=== PATIENT | male | born 1965 ===

== ENCOUNTER → 2016-06-19 | Outpatient (CLI) | payer OTHER ==
[~2016-06-19] MED LIST: DEPRESSION MED
--- NOTE | 2016-06-19 10:37 | DIAGNOSTIC IMAGING REPORT ---
CHEST 2 VIEWS ROUTINE HISTORY: Atypical chest pain with fever. COMPARISON: Chest 11/05/2016. FINDINGS: No pleural effusions. No pneumothorax. The heart is normal in size. Old, healed right-sided rib fractures. Slightly elevated interstitium without focal lung consolidations to suggest pneumonia. This remains unchanged. No evidence for pulmonary edema. IMPRESSION: No significant change compared to the prior study. No acute process. Electronically signed by: Leo Alcocer M.D. 06/19/2016 10:35 AM Dictated Date/Time: 06/19/2016 10:34 AM
--- NOTE | 2016-06-19 10:45 | DIAGNOSTIC IMAGING REPORT ---
ABDOMINAL ULTRASOUND COMPLETE HISTORY: Pain. Nausea. UPPER ABDOMINAL PAIN. COMPARISON: None. FINDINGS: Pancreas: The pancreas demonstrates a normal echotexture. Liver: Mild fatty infiltration Gallbladder: Slightly contracted. No shadowing gallstones. CBD: 3 mm Kidneys: No evidence for hydronephrosis. Small bilateral renal cysts. Spleen: Normal in size. Aorta: Normal in caliber. IVC: Patent. IMPRESSION: Small bilateral renal cysts. Slightly contracted gallbladder. Mild fatty infiltration of liver. Electronically signed by: Enrique Rodriguez M.D. 06/19/2016 10:43 AM Dictated Date/Time: 06/19/2016 10:38 AM
== END | disposition home or self-care (01) ==
LOC: C.ULTR 09:07
PROVIDERS: ATTEND Family Medicine
DX: R07.9 Chest pain, unspecified (principal)

== ENCOUNTER 2024-01-08 14:08 | Inpatient (IN) ==
--- NOTE | 2024-01-08 15:02 | Emergency Department Note ---
Impression & Plan Dog bite ED Provider Note ED Provider Note NAME: NORMA FAROOQ AGE:58 SEX: Male : 1965 ARRIVES VIA: Private vehicle INFORMANT: Patient ED PROVIDER(s): Maura Fernandez DO CHIEF COMPLAINT: Worsening wound from dog bite HPI: This is a 58-year-old male presents emergency room due to concern for worsening infection and pain at wound from a dog bite sustained by his own dog 2 nights ago. Patient states he went to [facility] yesterday and was given IM Rocephin and prescribed oral Augmentin. He had xrays taken of his hand additionally. He states he took a dose last night and this morning however the involved area to the right hand has become more edematous, more painful, wrist redness now coming back across the wrist. He denies fevers, chills, nausea, vomiting, or dizziness. He states he has had the dog for many years that is up-to-date on its vaccinations and has regular checkups with the vet. He denies any history of diabetes and is not otherwise immunocompromised. PAST MEDICAL HISTORY:See Below PAST SURGICAL HISTORY:See Below FAMILY HISTORY:See Below SOCIAL HISTORY:See Below HOME MEDICATIONS:See Below ALLERGIES:See Below VITALS:See Below PHYSICAL EXAMINATION: GENERAL: alert, well appearing, well nourished, no distress, non-toxic EYE EXAM: normal conjunctiva, PERRL and EOM's grossly intact NECK: supple, no nuchal rigidity, no adenopathy, non-tender LUNGS: Clear to auscultation. Normal chest wall mechanics, no w/r/r HEART: no murmurs, S1 normal and S2 normal SKIN: no rashes, petechiae, orbruising UPPER EXTREMITIES: upper extremities are grossly normal. FROM LUE, nml pulses b/l. Right hand with obvious edema and erythema, evidence of dog bite to the dorsal aspect between the first and second digits, patient reports sensation intact with testing at bedside and a normal cap refill however decreased range of motion of the second and third digits to the right hand secondary to pain. There is edema noted to the palmar surface in the same area. Erythema extends dorsally from the hand back across the wrist and into the distal dorsal forearm, this was outlined with a sterile marking pen, no evidence of lymphadenopathy or pain with palpation around the elbow or shoulder. LOWER EXTREMITIES: No pitting edema. FROM, nml pulses b/l. NEURO EXAM: Normal sensorium, cranial nerves II-XII grossly intact, normal speech, no facial droop,nogross weakness of arms, no gross weakness of legs. Gross sensation intact. No ataxia. Vital Signs: reviewed and remarkable Differential Diagnosis: Cellulitis, tenosynovitis, abscess, deep space infection, necrotizing fasciitis, septic arthritis, ascending lymphangitis, failed outpatient treatment, as well as others were considered MEDICAL DECISION MAKING: This is a 58-year-old male who presents emergency department following a dog bite 2 days ago with worsening symptoms despite outpatient antibiotics. Labs drawn and sent, IV established, patient given IV Unasyn. I did review outpatient x-rays from yesterday which were reassuring. Mild leukocytosis noted. Involved area was outlined with a sterile marking pen and he did not have any worsening ascending erythema while monitored in the emergency department. Due to concern for significant evolving infection to his dominant hand despite outpatient antibiotics, we discussed additional inpatient treatment and IV antibiotics. He verbalized understanding was in agreement. Case discussed with the hospitalist team for additional evaluation and management. Consultation(s): 1744: Discussed with Antwan Fong hospitalist team, for additional evaluation and management. ER Treatment Provided: See below Diagnostics Interpreted By Me: -Cardiac Monitoring: An order was placed for continuous cardiac monitoring. The monitor shows a rate of 98 with normal sinus rhythm. -Laboratory studies: As stated above and show below. Triage Nursing Note Reviewed Prior/Outside Records Reviewed -outpatient x-ray of the right hand from yesterday read by outside radiology as no fracture or other acute finding Past Med/Surg History Problem List (Updated 01/08/24 @ 18:31 by Analy Cornelius PA-C) Elevated blood pressure reading Cellulitis of hand, right Dog bite (Acute) Medical History Tobacco use Surgical History History of rotator cuff surgery Family History Father Heart disease Other Cancer Social History Smoking Status: Current every day smoker Cigarettes Per Day: 1 ppd; Hx Alcohol Use: No Hx Substance Use: No Preferred Language: Irish Feels Safe at Home: Yes Allergies Allergies Allergy/AdvReac Type Severity Reaction Status Date / Time No Known Allergies Allergy Unknown Verified 06/15/04 19:29 [id number] Allergy Unknown Uncoded 04/28/02 20:24 N Allergy Unknown Uncoded 04/28/02 20:24 Home Meds Home Medications Medication Instructions Recorded Confirmed amoxicillin 875 mg-potassium 1 tab PO BID 01/08/24 01/08/24 clavulanate 125 mg tablet ibuprofen 800 mg tablet 800 mg PO DIRECTED PRN Pain 01/08/24 01/08/24 mupirocin 2 % topical ointment 1 applic topical DIRECTED 01/08/24 01/08/24 tramadol 50 mg tablet 50 mg PO DIRECTED PRN Pain 01/08/24 01/08/24 Results & Data (ED) Vital Signs Vital Signs - 24 hr 01/08/24 14:15 01/08/24 16:33 01/08/24 19:12 Temperature 36.6 C 36.6 C Temperature Source Temporal Artery Scan Oral Pulse Rate 114 H Pulse Rate [Left Finger] 87 101 H Respiratory Rate 20 17 20 Respiratory Effort / Characteristics Non-Labored Respiratory Depth Normal Blood Pressure 119/89 Blood Pressure [Left Arm] 157/90 H 143/91 H Blood Pressure Mean 99 Blood Pressure Mean [Left Arm] 112 108 Blood Pressure Position [Left Arm] Sitting Pulse Oximetry 97 96 94 Oxygen Delivery Method Room Air Room Air Room Air Sepsis Recent Fever Within 48 Hours No Sepsis New/Unexplained Change in Mental Status N/A Sepsis Action Taken by Nursing No Action Required Laboratory Data 01/08/24 15:12 01/08/24 15:12 Lab Results 01/08/24 Range/Units 15:12 WBC 10.92 H (4.8-10.8) K/ul RBC 4.87 (4.70-6.10) M/uL Hgb 13.9 L (14.0-18.0) g/dl Hct 41.0 L (42.0-52.0) % MCV 84.2 (80.0-100.0) fL MCH 28.5 (25.0-34.0) pg MCHC 33.9 (32.0-36.0) g/dL RDW Std Deviation 40.0 (36.4-46.3) fL RDW Coeff of Ramu 13.1 (11.5-14.5) % Plt Count 247 (130-400) K/uL MPV 9.3 L (9.4-12.4) fL Immature Gran % (Auto) 0.5 % Neut % (Auto) 67.6 % Lymph % (Auto) 21.5 % [place] % (Auto) 8.6 % Eos % (Auto) 1.6 % Baso % (Auto) 0.2 % Neut # (Auto) 7.39 H (1.40-6.50) K/uL Lymph # (Auto) 2.35 (1.20-3.40) K/uL [place] # (Auto) 0.94 H (0.11-0.59) K/uL Eos # (Auto) 0.17 (0.00-0.50) K/uL Baso # (Auto) 0.02 (0.00-0.20) K/uL Immature Gran # (Auto) 0.05 (0.01-0.20) K/uL Sodium 137 (136-145) mmol/L Potassium 3.9 (3.5-5.1) mmol/L Chloride 105 (98-107) mmol/L Carbon Dioxide 24 (21-32) mmol/L Anion Gap 8 (3-11) BUN 12 (6-23) mg/dl Creatinine 0.87 (0.6-1.4) mg/dl Est Cr Clr Drug Dosing 89.4 ml/min eGFR 100.64 BUN/Creatinine Ratio 13.8 (10-20) Glucose 98 (70-99(Fasting)) mg/dl Calcium 9.5 (8.6-10.3) mg/dl Total Bilirubin 0.7 (0.2-1.0) mg/dl AST 18 (13-39) U/L ALT 15 (7-52) U/L Alkaline Phosphatase 62 (34-104) U/L Total Protein 7.3 (6.0-8.3) gm/dl Albumin 4.4 (3.4-5.0) gm/dl Globulin 2.9 (2.5-4.0) gm/dl Albumin/Globulin Ratio 1.5 (0.9-2) Administered Medications Sodium Chloride (Nss) 1,000 mls @ 125 mls/hr IV .Q8H ISMAEL Stop: 10/26/24 04:14 Last Admin: 01/08/24 20:16 Dose: 125 mls/hr Documented By: NATHALIA Discontinued Medications Diphtheria/Pertussis/Tetanus Vacc (Diphther/Tetan/Pertus Vaccine (Tdap, Adol/Adult) 0.5ml) 0.5 ml IM .ONCE ONE Stop: 01/08/24 18:05 Last Admin: 01/08/24 18:56 Dose: 0.5 ml Documented By: DEBBIE Ampicillin Sodium/Sulbactam Sodium (Unasyn) 3,000 mg in 100 mls @ 200 mls/hr IV NOW STA Stop: 01/08/24 15:25 Last Infusion: 01/08/24 17:00 Dose: Infused Documented By: Admin: 01/08/24 15:47 Dose: 200 mls/hr Documented By: CARLY Ioversol (Optiray 320 100ml) 94 ml IV ONCE ONE Stop: 01/08/24 18:33 Last Admin: 01/08/24 18:32 Dose: 94 ml Documented By: DWIGHT Imaging Data Radiologist's Impression: Hand CT 01/08/24 18:[address] WITH CONTRAST CLINICAL HISTORY: dog bite, r/o abscess COMPARISON STUDY: No previous studies for comparison. TECHNIQUE: Axial images of the right hand were obtained following intravenous injection of 94 cc Optiray 320 IV. Sagittal and coronal reconstructions were viewed. Automated exposure control was utilized for the study. A dose lowering technique was utilized adhering to the principles of ALARA. FINDINGS: Alignment of the right hand and right wrist is anatomic. On axial image 88 of 183, there is indentation of the dorsal aspect of the right second metacarpal head. This suggests an acute fracture. A bony erosion could appear similar. This also subtle lucency and cortical irregularity of the dorsal right third metacarpal head suggestive of a nondisplaced fracture. There is extensive dorsal subcutaneous edema of the right hand and forearm. This is partially imaged on this exam. No soft tissue gas is present. A small amount of fluid centered on the right second metacarpophalangeal joint is noted with peripheral enhancement. No additional fluid collections are identified. No additional fractures are identified. Carpal bones are intact. There is moderate osteoarthrosis of the right first carpometacarpal joint. Incidental note is made of a 1.5 cm lucent lesion within the base of the right first metacarpal. There is no CT evidence for tenosynovitis. IMPRESSION: 1. Indentation of the dorsal aspect of the right second metacarpal head. Given the clinical history, this is suggestive of a nondisplaced fracture. Probable additional fracture of the right third metacarpal head. 2. Small amount of fluid centered on the right second metacarpophalangeal joint with peripheral enhancement. This is likely related to the recent dog bite and may be posttraumatic. However, an infectious process with septic arthritis/developing abscess is the diagnosis of exclusion. No additional rim- enhancing fluid collections. 3. Dorsal subcutaneous edema of the right hand, wrist and forearm, partially imaged on this exam. This suggests extensive cellulitis. No soft tissue gas. ACT 112: Negative or not required by law. Electronically signed by: Jeffrey Godfrey M.D. 01/08/2024 7:16 PM Discharge Plan Visit Data Chief Complaint: Animal Bite Stated Complaint: DOG BITE, HAS GOTTEN WORSE ED Provider: Maura Fernandez Discharge Problem: Dog bite Forms Stand Alone Forms: [facility] Prescriptions Prescriptions: No Action ibuprofen 800 mg tablet 800 mg PO DIRECTED PRN (Reason: Pain) tramadol 50 mg tablet 50 mg PO DIRECTED PRN (Reason: Pain) Rx Instructions: given yesterday as 1 day supply mupirocin 2 % ointment 1 applic TOPICAL DIRECTED amoxicillin-pot clavulanate 875-125 mg tablet 1 tab PO BID Referrals Referrals: Jennifer Ferrera DO [Outside Practitioners] -
[2024-01-08 15:35] LABS: Basophils # (auto) 0.02 K/uL (0.00-0.20); Basophils % (auto) 0.2 %; Eosinophils # (auto) 0.17 K/uL (0.00-0.50); Eosinophils % (auto) 1.6 %; Hemoglobin 13.9 g/dl (14.0-18.0); Immature Granulocytes # (auto) 0.05 K/uL (0.01-0.20); Immature Granulocytes % (auto) 0.5 %; Lymphocytes # (auto) 2.35 K/uL (1.20-3.40); Lymphocytes % (auto) 21.5 %; Mean Corpuscular Hemoglobin 28.5 pg (25.0-34.0); Mean Corpuscular Hgb Conc 33.9 g/dL (32.0-36.0); Mean Corpuscular Volume 84.2 fL (80.0-100.0); Mean Platelet Volume 9.3 fL (9.4-12.4); Monocytes # (auto) 0.94 K/uL (0.11-0.59); Monocytes % (auto) 8.6 %; Neutrophils # (auto) 7.39 K/uL (1.40-6.50); Neutrophils % (auto) 67.6 %; Platelet Count 247 K/uL (130-400); RDW Coefficient of Variation 13.1 % (11.5-14.5); Red Blood Count 4.87 M/uL (4.70-6.10); White Blood Count 10.92 K/ul (4.8-10.8)
[2024-01-08] MEDS: AMPICILLIN/SULBACTAM SOD 3,000 MG/100 ML BAG IV STA (15:47)
[2024-01-08 15:49] LABS: Albumin Globulin Ratio 1.5 (0.9-2); Albumin Level 4.4 gm/dl (3.4-5.0); BUN Creatinine Ratio 13.8 (10-20); Bilirubin,Total 0.7 mg/dl (0.2-1.0); Calcium 9.5 mg/dl (8.6-10.3); Creatinine Clr Calc Pharmacy 89.4 ml/min; Globulin 2.9 gm/dl (2.5-4.0); Potassium 3.9 mmol/L (3.5-5.1); Total Protein 7.3 gm/dl (6.0-8.3)
--- NOTE | 2024-01-08 17:45 | History & Physical Report ---
Date of Service January 08, 2024 Assessment & Plan (1) Cellulitis of hand, right: (2) Dog bite: Plan: Patient is 58 year old male with PMH tobacco use presented to ER with c/o dog bite to hand 2 days ago with increased edema and erythema. Pt's pet dog and reported up to date with vaccinations. Denies fever/chills Seen by urgent care yesterday and started Augmentin however continued worsening In ER afebrile.HR: 114, down to 87, R: 20, BP 157/90, 96% on room air WBC: 10.9 In ER given Unasyn Blood culture Will continue Unasyn Obtain CT scan to r/o abscess Obtain EKG with tachycardia initially in ER, currently RRR to auscultation Elevate extremity Update tetanus shot now May need to consider ortho consult CBC, BMP in am (3) Elevated blood pressure reading: Plan: In ER BP: 157/90 Pt doesn't follow with PCP and not had recent BP measurements. May have undiagnosed HTN Monitor BP (4) Tobacco use: Plan: Smokes 1ppd Denies nicotine patch DVT Prophylaxis SCDs for now, Ambulate Admit med tele Full Code as per discussion with pt Does not follow with PCP for routine care Pt was seen and care coordinated with Dr Petersen. See addendum I spent a total of 60 minutes reviewing notes, outpatient records, labs, medication, coordinating, documenting and providing care for this patient excluding time spent in the performance of separately billed services. History of Present Illness Chief Complaint: Dog bite Primary Care Provider: NO PCP Patient is 58 year old male with PMH tobacco use presented to ER with c/o dog bite to hand with increased edema and erythema. Patient states to nights ago he went to look at his pet dog's leg and his dog bit him on his right hand. Patient states had some swelling to area yesterday and went to urgent care. He reports had reported negative x-ray hand and was given IM Rocephin and sent home on Augmentin. Patient states today has had increased swelling and redness to hand and fingers and limited range of motion of fingers. He has been attempting to keep hand elevated and has taking ibuprofen intermittently for discomfort. Reports last tetanus shot greater than 5 years ago. Patient reports dog is up -to-date on his vaccinations. He does not follow with PCP and hasn't had his BP checked until yesterday when was told it was "a little elevated". Denies fever/chills, diaphoresis, N/V/D/C, DAHL, dizziness, syncope, CP, SOB, cough, sore throat, rhinorrhea, abdominal pain, paresthesias, other extremity edema, other rashes, urinary symptoms. Allergies Allergy/AdvReac Type Severity Reaction Status Date / Time No Known Allergies Allergy Unknown Verified 06/15/04 19:29 [id number] Allergy Unknown Uncoded 04/28/02 20:24 N Allergy Unknown Uncoded 04/28/02 20:24 Home Medications Medication Instructions Recorded Confirmed Type amoxicillin 875 mg-potassium 1 tab PO BID 01/08/24 01/08/24 History clavulanate 125 mg tablet ibuprofen 800 mg tablet 800 mg PO DIRECTED PRN Pain 01/08/24 01/08/24 History mupirocin 2 % topical ointment 1 applic topical DIRECTED 01/08/24 01/08/24 History tramadol 50 mg tablet 50 mg PO DIRECTED PRN Pain 01/08/24 01/08/24 History Past Med/Surg History Problem List (Updated 01/08/24 @ 18:31 by Analy Cornelius PA-C) Elevated blood pressure reading Cellulitis of hand, right Dog bite (Acute) Medical History Tobacco use Surgical History History of rotator cuff surgery Family History Father Heart disease Other Cancer Social History Smoking Status: Current every day smoker Cigarettes Per Day: 1 ppd; Hx Alcohol Use: No Hx Substance Use: No Preferred Language: Guinean Feels Safe at Home: Yes Review of Systems Review of Systems: All systems reviewed & are unremarkable except as noted in HPI & below Physical Exam Physical Exam: General: no distress, WDWN Head: normocephalic, atraumatic Eyes: conjunctiva non-injected, anicteric ENT: normal inspection external ears, nose, mucous membranes moist Neck: supple, trachea midline, non-tender Lungs: clear, no respiratory distress, no wheezing/rhonchi/rales CV: RRR, no murmur, no pretibial edema Abd: normal BS, soft, non-tender Ext: no cyanosis, no calf tenderness; RUE: Right hand with puncture wounds over distal 2nd metacarpal region without noted discharge. +diffuse edema and erythema to hand extending to fingers and erythema extends up to wrist (marked with skin marker), Skin is warm and tender to palpation. Limited ROM of 2-5 fingers. Sensation to light touch intact Neuro: A&O x 3, no focal deficits noted, normal affect Skin: warm, dry, as above in ext Results & Data Results & Data Vital Signs (Past 12 Hours) Vital Signs Temp Pulse Pulse Resp BP BP Pulse Ox 01/08/24 16:33 87 17 157/90 H 96 01/08/24 14:15 36.6 C 114 H 20 119/89 97 O2 Del Method 01/08/24 16:33 Room Air 01/08/24 14:15 Room Air Laboratory Results Short CBC 01/08/24 Range/Units 15:12 WBC 10.92 H (4.8-10.8) K/ul Hgb 13.9 L (14.0-18.0) g/dl Hct 41.0 L (42.0-52.0) % Plt Count 247 (130-400) K/uL BMP 01/08/24 15:12 Sodium 137 Potassium 3.9 Chloride 105 Carbon Dioxide 24 BUN 12 Creatinine 0.87 Glucose 98 Calcium 9.5 Liver Function 01/08/24 Range/Units 15:12 Total Bilirubin 0.7 (0.2-1.0) mg/dl AST 18 (13-39) U/L ALT 15 (7-52) U/L Alkaline Phosphatase 62 (34-104) U/L Albumin 4.4 (3.4-5.0) gm/dl Supervising Physician Co-Signing Physician Notes attending addendum: The patient was seen and examined in emergency room He has been complaining of increasing swelling and redness involving the right hand following a dog bite on Thursday He has been complaining of increasing pain and tightness involving the fingers Denies any fever and/or chills and does not have any other significant symptoms On examination Apparent distress secondary to pain in the right hand Hemodynamically stable and is afebrile Chestclear to auscultate HeartS1-S2 regular Abdomenbenign Right upper extremityright hand and adjoining forearm is swelled with the bite desi involving the base of the thumb, redness spreading lower half of the right forearm. Movement of the fingers limited due to swelling His admission labs and imaging studies noted Right hand cellulitis following dog bite on Thursday Unasyn has been started Advised to elevate the hands above the heart when possible Awaiting CT scan report to rule out any abscess and if so we need to have Ortho consult Agree with assessment and plan as outlined above by Sandy Chang and take the full responsibility of the care Dr Beth Petersen
[2024-01-08] MEDS: OPTIRAY 320 100ml IV ONE (18:32)
[2024-01-08] MEDS: DIPHTHER/TETAN/PERTUS Vaccine (Tdap, Adol/Adult) 0.5mL IM ONE (18:56)
--- NOTE | 2024-01-08 19:17 | CT Scan Report ---
RIGHT HAND CT WITH CONTRAST CLINICAL HISTORY: dog bite, r/o abscess COMPARISON STUDY: No previous studies for comparison. TECHNIQUE: Axial images of the right hand were obtained following intravenous injection of 94 cc Opti ray 320 IV. Sagittal and coronal reconstructions were viewed. Automated exposure control was utilized for the study. A dose lowering technique was utilized adhering to the principles of ALARA. FINDINGS: Alignment of the right hand and right wrist is anatomic. On axial image 88 of 183, there i s indentation of the dorsal aspect of the right second metacarpal head. This suggests an acute fractu re. A bony erosion could appear similar. This also subtle lucency and cortical irregularity of the do rsal right third metacarpal head suggestive of a nondisplaced fracture. There is extensive dorsal sub cutaneous edema of the right hand and forearm. This is partially imaged on this exam. No soft tissue gas is present. A small amount of fluid centered on the right second metacarpophalangeal joint is not ed with peripheral enhancement. No additional fluid collections are identified. No additional fractur es are identified. Carpal bones are intact. There is moderate osteoarthrosis of the right first carpo metacarpal joint. Incidental note is made of a 1.5 cm lucent lesion within the base of the right firs t metacarpal. There is no CT evidence for tenosynovitis. IMPRESSION: 1. Indentation of the dorsal aspect of the right second metacarpal head. Given the clinical history, this is suggestive of a nondisplaced fracture. Probable additional fracture of the right third metaca rpal head. 2. Small amount of fluid centered on the right second metacarpophalangeal joint with peripheral enhan cement. This is likely related to the recent dog bite and may be posttraumatic. However, an infectiou s process with septic arthritis/developing abscess is the diagnosis of exclusion. No additional rim-e nhancing fluid collections. 3. Dorsal subcutaneous edema of the right hand, wrist and forearm, partially imaged on this exam. Thi s suggests extensive cellulitis. No soft tissue gas. ACT 112: Negative or not required by law. Electronically signed by: Jeffrey Godfrey M.D. 01/08/2024 7:16 PM
[2024-01-08] MEDS: SODIUM CHLORIDE 0.9% 1,000 ML IV SCH (20:16)
[2024-01-08] MEDS ORDERED: ONDANSETRON INJ 2 MG/ML 2 ML VIAL IV PRN (21:26)
[2024-01-08] MEDS ORDERED: POLYETHYLENE (MIRALAX) 17 GM PACK PO PRN (21:26)
[2024-01-08] MEDS: AMPICILLIN/SULBACTAM SOD 3,000 MG/100 ML BAG IV SCH (22:58)
[2024-01-08] MEDS: ACETAMINOPHEN 325 MG TAB PO PRN (22:59)
--- NOTE | 2024-01-09 07:38 | Electrocardiogram Report ---
Test Reason : Blood Pressure : */* mmHG Vent. Rate : 101 BPM Atrial Rate : 101 BPM P-R Int : 128 ms QRS Dur : 82 ms QT Int : 344 ms P-R-T Axes : 37 63 60 degrees QTcB Int : 446 ms Sinus tachycardia Otherwise normal ECG When compared with ECG of 05-Nov-2006 13:15, ST now depressed in Anterior leads Confirmed by Nigel Hollis ([id number]) on 01/09/2024 7:38:30 AM Referred By: REFERRED SELF Confirmed By: Nigel Hollis
[2024-01-09 07:43] LABS: Basophils # (auto) 0.03 K/uL (0.00-0.20); Basophils % (auto) 0.3 %; Eosinophils # (auto) 0.21 K/uL (0.00-0.50); Eosinophils % (auto) 2.3 %; Hematocrit (blood only) 39.1 % (42.0-52.0); Hemoglobin 12.8 g/dl (14.0-18.0); Immature Granulocytes # (auto) 0.04 K/uL (0.01-0.20); Immature Granulocytes % (auto) 0.4 %; Lymphocytes # (auto) 2.25 K/uL (1.20-3.40); Lymphocytes % (auto) 24.6 %; Mean Corpuscular Hemoglobin 28.6 pg (25.0-34.0); Mean Corpuscular Hgb Conc 32.7 g/dL (32.0-36.0); Mean Corpuscular Volume 87.5 fL (80.0-100.0); Mean Platelet Volume 9.1 fL (9.4-12.4); Monocytes # (auto) 0.88 K/uL (0.11-0.59); Monocytes % (auto) 9.6 %; Neutrophils # (auto) 5.74 K/uL (1.40-6.50); Neutrophils % (auto) 62.8 %; Platelet Count 217 K/uL (130-400); RDW Coefficient of Variation 13.2 % (11.5-14.5); RDW Standard Deviation 41.9 fL (36.4-46.3); Red Blood Count 4.47 M/uL (4.70-6.10); White Blood Count 9.15 K/ul (4.8-10.8)
[2024-01-09 07:53] LABS: BUN Creatinine Ratio 13.3 (10-20); Calcium 8.8 mg/dl (8.6-10.3); Potassium 4.1 mmol/L (3.5-5.1)
--- NOTE | 2024-01-09 09:33 | Hospitalist Progress Note ---
Date of Service January 09, 2024 Assessment & Plan (1) Cellulitis of hand, right: (2) Dog bite: Plan: 58 year old male with PMH tobacco use presented to ER with c/o dog bite to hand 2 days ago with increased edema and erythema. Pt's pet dog and reported up to d ate with vaccinations. Denies fever/chills Seen by urgent care on the day prior to presentation and started Augmentin however continued worsening In ER afebrile.HR: 114, down to 87, R: 20, BP 157/90, 96% on room air WBC: 10.9 CT Hand noted indentation of dorsal aspect of right 2nd Metacarpal head, suggestive of nondisplaced fracture. Probable additional fracture of fright 3rd metacarpal head. Small amount of fluid in right 2nd MCP joint with peripheral enhancement. Dorsal subcut edema of right hand, wrist and forearm Got Tetanus shot in ER Reports his dog is fully vaccinated Continue IV unasyn Elevate Rt hand Awaiting Ortho surg evaluation and recommendations (3) Elevated blood pressure reading: Plan: In ER BP: 157/90 Pt doesn't follow with PCP and not had recent BP measurements. Possible elevated BP due to acute illness vs undiagnosed Hypertension BP is 134/77 this AM Continue to monitor (4) Tobacco use: Plan: Smokes 1ppd Counseled regarding smoking cessation DVT Prophylaxis SCDs for now, Ambulate Full Code I spent a total of 55 minutes coordinating, documenting and providing care for this patient excluding time spent in performance of separately billed services Admission and Anticipated Discharge Date Admission Date: January 08, 2024 Subjective Patient seen and examined Reports he had a dog bite on thursday. He went to urgent care and got antibiotics (IM and po) Had increased swelling and redness of hand extending into distal forearm, necessitating presentation to ER. Reports pain in 2nd and 3rd digits of right hand with swelling with limited movement. Denied fever, chills, nausea, vomiting, abd pain, diarrhea Got tetanus shot in ER yesterday Reports his dog is fully vaccinated Physical Exam Constitutional: + well hydrated; no acute distress Eyes: PERRL, conjunctivae normal, anicteric sclerae ENMT: external ear and nose normal, oropharynx normal Respiratory: normal respiratory effort, lungs clear to auscultation Cardiovascular: Rate/Rhythm: regular rate and regular rhythm Gastrointestinal (Abdomen): normal bowel sounds, soft, nontender, no hepatosplenomegaly Musculoskeletal: Bite desi on dorsum of proximal phalanx and metacarpal area of 2nd digit of right hand. Hand swelling, erythema and tenderness Limited ROM of 2nd and 3rd digit MCP and ICP joints. Improved erythema of distal forearm within marked region Neurologic: PERRL, EOMI, accommodation nl, no face palsy, no dysarthria Psychiatric: A+Ox3, euthymic affect Results & Data Results & Data Vital Signs (Past 12 Hours) Vital Signs Temp Pulse Pulse Resp BP Pulse Ox O2 Del Method 01/09/24 07:37 36.7 C 80 18 134/77 95 Room Air 01/09/24 07:11 78 01/09/24 02:47 36.7 C 91 H 18 152/86 H 94 Room Air 01/09/24 01:42 Room Air 01/08/24 22:56 36.8 C 86 18 144/85 H 95 Room Air 01/08/24 21:58 94 H Laboratory Results Abnormal lab results 01/08/24 01/09/24 Range/Units 15:12 06:56 WBC 10.92 H (4.8-10.8) K/ul RBC 4.47 L (4.70-6.10) M/uL Hgb 13.9 L 12.8 L (14.0-18.0) g/dl Hct 41.0 L 39.1 L (42.0-52.0) % MPV 9.3 L 9.1 L (9.4-12.4) fL Neut # (Auto) 7.39 H (1.40-6.50) K/uL [place] # (Auto) 0.94 H 0.88 H (0.11-0.59) K/uL Chloride 109 H (98-107) mmol/L
--- NOTE | 2024-01-09 10:21 | Orthopedic Consultation ---
Date of Consultation January 09, 2024 Assessment & Plan (1) Dog bite: Examination is concerning for infection warranting washout in the OR. Consent obtained. Patient had breakfast this morning. Placed order for n.p.o. status. Plan will be to take him to the OR this afternoon. CT results of the hand reviewed as above. X-ray of the right hand pending as this was not available in our system. Continue antibiotics per primary service. Continue pain control per primary service. (2) Cellulitis of hand, right: See above History of Present Illness Reason for Consultation: Right hand dog bite with suspected infection Attending Physician: Cheyenne Feliciano MD History of Present Illness This is a [id number] 58-year-old male with a history of tobacco use who presented to the emergency department last night for increasing pain, redness, and swelling in his right hand. He states that he was bitten by his dog the night of 01/06/2024. He was then seen at an urgent care the following day and received antibiotics. Yesterday he noticed that the pain, redness, and swelling was increasing and he came to the emergency department and was subsequently admitted for IV antibiotics. Since being onto the antibiotics, the redness and swelling in his forearm has improved but he still has significant pain, redness, and swelling over his index finger knuckle and he is unable to fully bend the index finger or fully straighten it secondary to pain. He has not had any fevers or chills. He denies any numbness or tingling in his fingers. He has not had any prior surgeries on this hand. He does not currently take any daily medications. Allergies Allergy/AdvReac Type Severity Reaction Status Date / Time No Known Allergies Allergy Unknown Verified 06/15/04 19:29 [id number] Allergy Unknown Uncoded 04/28/02 20:24 N Allergy Unknown Uncoded 04/28/02 20:24 Home Medications Medication Instructions Recorded Confirmed Type amoxicillin 875 mg-potassium 1 tab PO BID 01/08/24 01/08/24 History clavulanate 125 mg tablet ibuprofen 800 mg tablet 800 mg PO DIRECTED PRN Pain 01/08/24 01/08/24 History mupirocin 2 % topical ointment 1 applic topical DIRECTED 01/08/24 01/08/24 History tramadol 50 mg tablet 50 mg PO DIRECTED PRN Pain 01/08/24 01/08/24 History Patient History Medical History Tobacco use Surgical History History of rotator cuff surgery Family History Father Heart disease Other Cancer Social History Smoking Status: Current every day smoker Tobacco Type: Cigarettes Cigarettes Per Day: 1 ppd; Second Hand Exposure: Yes; Do You Dip or Chew Tobacco: No; Tobacco Cessation Education Requested by Patient: No Hx Alcohol Use: No Hx Substance Use: No Preferred Language: Telugu Communication Ability: Effective Child & Adolescent Psychiatrist Required: No Beliefs That Will Affect Care: None Current Living Situation: Alone Other Information That Helps Us Care for You: No Feels Safe at Home: Yes Safety Concerns: Feels Safe At This Time Assistive Devices: None Assistive Devices Comment: Independent Physical Exam Constitutional: Resting comfortably sitting upright in bed. Self splinting the right hand. Otherwise in no distress, pleasant. Cardiovascular: Right radial pulse 2+ Musculoskeletal: Right upper extremity: There is diffuse soft tissue swelling noted about the hand most prominent about the dorsal and palmar aspects of the second MCP joint. Multiple puncture wounds to the palmar and dorsal aspects of the same location. There is skin erythema noted to the dorsal aspect overlying the second MCP joint. Focal tenderness appreciated over the second MCP joint and palmar aspect of the proximal phalanx of the index finger. There is decreased flexion and extension in the index finger when having the patient make a fist. Index finger range of motion: Able to initiate active flexion at the DIP and PIP joints. Unable to fully extend secondary to pain. Significant pain is elicited with passive range of motion of the second MCP joint and with passive extension of the index finger. There is no pain elicited with passive range of motion of the 3rd through 5th MCP joints. Neurologic: No sensory deficits to light touch in right fingers Results & Data Vital Signs (Past 12 Hours) Vital Signs Temp Pulse Pulse Resp BP Pulse Ox O2 Del Method 01/09/24 07:37 98.1 F 80 18 134/77 95 Room Air 01/09/24 07:11 78 01/09/24 02:47 98.1 F 91 H 18 152/86 H 94 Room Air 01/09/24 01:42 Room Air 01/08/24 22:56 98.3 F 86 18 144/85 H 95 Room Air Laboratory Results 01/08/24 19:30 Aerobic Blood Culture - Pending Blood Anaerobic Blood Culture - Pending 01/09/24 01/08/24 06:56 15:12 WBC 9.15 10.92 H RBC 4.47 L 4.87 Hgb 12.8 L 13.9 L Hct 39.1 L 41.0 L MCV 87.5 84.2 MCH 28.6 28.5 MCHC 32.7 33.9 RDW Std Deviation 41.9 40.0 RDW Coeff of Ramu 13.2 13.1 Plt Count 217 247 MPV 9.1 L 9.3 L Immature Gran % (Auto) 0.4 0.5 Neut % (Auto) 62.8 67.6 Lymph % (Auto) 24.6 21.5 [place] % (Auto) 9.6 8.6 Eos % (Auto) 2.3 1.6 Baso % (Auto) 0.3 0.2 Neut # (Auto) 5.74 7.39 H Lymph # (Auto) 2.25 2.35 [place] # (Auto) 0.88 H 0.94 H Eos # (Auto) 0.21 0.17 Baso # (Auto) 0.03 0.02 Immature Gran # (Auto) 0.04 0.05 Sodium 139 137 Potassium 4.1 3.9 Chloride 109 H 105 Carbon Dioxide 25 24 Anion Gap 5 8 BUN 13 12 Creatinine 0.98 0.87 Est Cr Clr Drug Dosing 79.0 89.4 eGFR 89.94 100.64 BUN/Creatinine Ratio 13.3 13.8 Glucose 97 98 Calcium 8.8 9.5 Total Bilirubin 0.7 AST 18 ALT 15 Alkaline Phosphatase 62 Total Protein 7.3 Albumin 4.4 Globulin 2.9 Albumin/Globulin Ratio 1.[address] 01/08/24 18:[address] WITH CONTRAST CLINICAL HISTORY: dog bite, r/o abscess COMPARISON STUDY: No previous studies for comparison. TECHNIQUE: Axial images of the right hand were obtained following intravenous injection of 94 cc Optiray 320 IV. Sagittal and coronal reconstructions were viewed. Automated exposure control was utilized for the study. A dose lowering technique was utilized adhering to the principles of ALARA. FINDINGS: Alignment of the right hand and right wrist is anatomic. On axial image 88 of 183, there is indentation of the dorsal aspect of the right second metacarpal head. This suggests an acute fracture. A bony erosion could appear similar. This also subtle lucency and cortical irregularity of the dorsal right third metacarpal head suggestive of a nondisplaced fracture. There is extensive dorsal subcutaneous edema of the right hand and forearm. This is partially imaged on this exam. No soft tissue gas is present. A small amount of fluid centered on the right second metacarpophalangeal joint is noted with peripheral enhancement. No additional fluid collections are identified. No additional fractures are identified. Carpal bones are intact. There is moderate osteoarthrosis of the right first carpometacarpal joint. Incidental note is made of a 1.5 cm lucent lesion within the base of the right first metacarpal. There is no CT evidence for tenosynovitis. IMPRESSION: 1. Indentation of the dorsal aspect of the right second metacarpal head. Given the clinical history, this is suggestive of a nondisplaced fracture. Probable additional fracture of the right third metacarpal head. 2. Small amount of fluid centered on the right second metacarpophalangeal joint with peripheral enhancement. This is likely related to the recent dog bite and may be posttraumatic. However, an infectious process with septic arthritis/developing abscess is the diagnosis of exclusion. No additional rim- enhancing fluid collections. 3. Dorsal subcutaneous edema of the right hand, wrist and forearm, partially imaged on this exam. This suggests extensive cellulitis. No soft tissue gas. ACT 112: Negative or not required by law. Electronically signed by: Jeffrey Godfrey M.D. 01/08/2024 7:16 PM
--- NOTE | 2024-01-09 10:54 | XRay Report ---
RIGHT HAND 3 VIEWS CLINICAL HISTORY: Dogbite injury. Infection. FINDINGS: 3 views of the right hand are correlated with CT scan of the hand dated 01/08/2024. The ske letal structures are well mineralized. There is no radiographic evidence of acute fracture. Mild arth ritic change is seen in the wrist and hand, greatest at the first carpometacarpal and metacarpophalan geal joints. There is dorsal soft tissue edema. No soft tissue gas is identified. A tiny radiodense f oreign body is seen within the palmar aspect of the fourth digit at the level of the middle phalangea l head. IMPRESSION: 1. Dorsal soft tissue swelling with no acute bony abnormality identified. 2. The tiny impaction fractures suggested by CT are not visualized on x-ray. 3. A tiny radiodense foreign body is seen in the fourth digit as above. Electronically signed by: Gregorio Tomas M.D. 01/09/2024 10:52 AM
--- NOTE | 2024-01-09 11:55 | Anesthesiology Consultation ---
Date of Service January 09, 2024 Assessment & Plan Chart Review Chart Review: Acceptable Risk for Surgery and Patient NOT seen in Pre Admission Testing Consults Requested none History Surgery Operation Date: 01/09/24 13:00 Proposed Procedures p Incision and Drainage Right Hand(Right) - Kevin Solorio MD Height/Weight Height: 5 ft 4 in Weight: 79 kg Allergies Allergy/AdvReac Type Severity Reaction Status Date / Time No Known Allergies Allergy Unknown Verified 06/15/04 19:29 [id number] Allergy Unknown Uncoded 04/28/02 20:24 N Allergy Unknown Uncoded 04/28/02 20:24 Medications Home Medications Medication Instructions Recorded Confirmed Last Taken amoxicillin 875 mg-potassium 1 tab PO BID 01/08/24 01/08/24 Unknown clavulanate 125 mg tablet ibuprofen 800 mg tablet 800 mg PO DIRECTED PRN Pain 01/08/24 01/08/24 Unknown mupirocin 2 % topical ointment 1 applic topical DIRECTED 01/08/24 01/08/24 Unknown tramadol 50 mg tablet 50 mg PO DIRECTED PRN Pain 01/08/24 01/08/24 Unknown Active Medications Generic Name Dose Route Start Last Admin Trade Name Freq PRN Reason Stop Dose Admin Acetaminophen 650 mg 01/08/24 21:26 01/08/24 22:59 Acetaminophen 325 Mg Tab PO 02/07/24 21:25 650 mg Q4H PRN Administration pain/fever Ampicillin Sodium/Sulbactam Sodium 3,000 mg in 100 mls @ 200 mls/hr 01/08/24 22:00 01/09/24 09:49 Unasyn IV 01/15/24 21:59 Infused Q6H ISMAEL Infusion Past Medical History Medical History Tobacco use Past Family History Family History Father Heart disease Other Cancer Past Surgical History Surgical History History of rotator cuff surgery Social History Smoking Status: Current every day smoker Smoking cigarettes per day: 1 ppd Do You Dip or Chew Tobacco: No Hx Alcohol Use: No Hx Substance Use: No Physical Exam Vital Signs Last Vital Signs Temp 36.5 C 01/09/24 11:26 Pulse 82 01/09/24 11:26 Resp 18 01/09/24 11:26 BP 142/76 H 01/09/24 11:26 Pulse Ox 96 01/09/24 11:26 O2 Del Method Room Air 01/09/24 11:26 Constitutional + well hydrated; no acute distress Eyes PERRL, conjunctivae normal, anicteric sclerae ENMT external ear and nose normal, oropharynx normal Respiratory normal respiratory effort, lungs clear to auscultation Cardiovascular Rate/Rhythm: regular rate and regular rhythm Gastrointestinal (Abdomen) normal bowel sounds, soft, nontender, no hepatosplenomegaly Neurologic PERRL, EOMI, accommodation nl, no face palsy, no dysarthria Psychiatric A+Ox3, euthymic affect Testing Laboratory Results 01/09/24 06:56 01/09/24 06:56
[2024-01-09] MEDS ORDERED: fentaNYL citrate PF 100 MCG/2 ML VIAL ONE (12:34)
[2024-01-09] MEDS ORDERED: MIDAZOLAM HCL 1 MG/ML 2ML VIAL ONE (12:34)
[2024-01-09] MEDS ORDERED: ROCURONIUM BROMIDE 10 MG/ML 5 ML VIAL IV ONE (12:43)
[2024-01-09] MEDS ORDERED: SUCCINYLCHOLINE CHLORIDE 20 MG/ML 10 ML VIAL IV ONE (12:43)
[2024-01-09] MEDS ORDERED: ONDANSETRON INJ 2 MG/ML 2 ML VIAL ONE (12:43)
[2024-01-09] MEDS ORDERED: PROPOFOL IV EMULSION 10 MG/ML 20 ML VIAL IV ONE ×2 (12:43→13:34)
[2024-01-09] MEDS ORDERED: LIDOCAINE 2% 2 ML VIAL/AMP(20MG/ML) INFIL ONE (12:43)
[2024-01-09] MEDS ORDERED: ACETAMINOPHEN 1000 MG/100 ML IV IV ONE (12:48)
[2024-01-09] MEDS ORDERED: ceFAZolin 330 MG/ML 1 GM VIAL ONE ×2 (13:24)
[2024-01-09] MEDS: ceFAZolin 2000MG 2,000 MG/15 ML SYR IV ONE (13:25)
[2024-01-09] MEDS ORDERED: LARYING-O-JET KIT (LTA) ONE (13:39)
[2024-01-09] MEDS ORDERED: PHENYLEPHRINE HCL 10 MG/ML VIAL ONE (13:39)
[2024-01-09] MEDS ORDERED: SUGAMMADEX SODIUM 200 MG/2 ML VIAL IV ONE (14:09)
[2024-01-09] MEDS ORDERED: ALBUTEROL HFA 8 GM INHALER INH ONE (14:13)
[2024-01-09] MEDS: LIDOCAINE 1%/EPINEPHRINE 1:100,000 50 ML VIAL INFIL ONE ×2 (14:22→19:05)
--- NOTE | 2024-01-09 14:40 | Operative Report ---
Post Operative Report Pre & Post Diagnosis Operation Date: 01/09/24 13:00 Pre-Op Diagnosis: 1. Dog bite right hand, 2. Cellulitis of right hand Post-Op Diagnosis: 1. Dog bite right hand, 2. Cellulitis of right hand Subcutaneous abscess. Probable early osteomyelitis of the second metacarpal head and possible septic arthritis of the index finger metacarpophalangeal joint I identified the patient and participated in the time-out.: Yes Procedure Operation Date: 01/09/24 13:00 Actual Procedures p Incision and Drainage Right Hand Index finger with opening and irrigation of the metacarpophalangeal joint and debridement of the second metacarpal head(Right) - Kevin Solorio MD Surgeon Kevin Solorio MD Clerical Administrative Assistant Luan Forde physicians cashier assistant no resident or fellow available Estimated Blood Loss 10 Findings Consistent with Post-Op Diagnosis Specimens Specimen 1 was right index finger superficial #2 right index finger metacarpophalangeal joint #3 was right second metacarpal head. The first specimen was bone from the second metacarpal head for culture and permanent specimen. There was also a second specimen for permanent which was soft tissue from the index finger, tenosynovium at [employer]. Drains Quarter-inch Bar x 1 Anesthesia Type General Regional Complications none Disposition Accompanied Patient To Recovery: No Disposition: Recovery Room Indications Patient is 58. Approximately 3 days ago he was bit by his dog. Progressive redness pain and swelling involving the index finger metacarpophalangeal joint. X-rays are negative. CT scan suggests a small abscess and there has been some damage to the second carpal head which could be related to puncture from a tooth. I recommended irrigation debridement exploration. Patient agreed to proceed. Description of Procedure Informed consent. Patient identified. He identified the procedure site as the right index finger. I marked with my initials. A preop surgical timeout performed. A preop dose of IV antibiotics given. Taken to the OR positioned supine on the operating room table. A tourniquet is applied to the right upper arm. The procedure initially began without use of the tourniquet but due to hyperemia and oozing I inflated the tourniquet without exsanguinating the limb. It was up for about 15 minutes and then deflated. Hand table. DVT prophylaxis with mechanical devices. Postop early mobility. Examination showed a solitary benign-appearing puncture on the volar aspect of the metacarpal phalangeal joint without any redness fluctuance or drainage. On the dorsal aspect of the hand there were multiple punctures and abrasions over the metacarpal phalangeal joint. Slight fluctuance was noted and with some more pressure purulence could be expressed from the larger wound on the more ulnar side of the joint. The hand was shaved and then scrubbed and then prepped and draped in the usual sterile fashion. I made a longitudinal incision directly over the midline extending as necessary for total length of about 5 cm. The skin was sharply incised. I bluntly dissected down through the subcutaneous tissue to the level of the extensor expansion. Upon incising the skin a small amount of purulence was noted which was adjacent to the previous mentioned wound. A culture was taint obtained here and labeled right index finger superficial. I then got control of some of the superficial bleeding and a vein proximally. I then put the tourniquet up. There was significant granulation tissue present here which was debrided. This was obscuring the extensor tendons. The extensor indicis proprius and the common extensor tendon were identified. I then made an incision through the extensor smith along the ulnar aspect of the metacarpal carrying this out to the proximal phalanx. The tenosynovium was incised and the joint was opened. There was some fluid within the joint however I did not see any significant purulence like I did more superficially. I did note however that there was an obvious puncture of the second metacarpal head located somewhat ulnar of midline. I did not see any other damage noted. This puncture caused flaking of the cartilage which was debrided. The tissue within this puncture was soft. I obtained a culture within the joint labeling at the metacarpophalangeal joint and then the third culture came from the metacarpal head. Along the way I debrided the tenosynovium and sent that as a specimen and then also I sent a second specimen which was curetted bone from the second metatarsal head and soft tissue for culture and permanent. After debriding this lesion was about 4 or 5 mm in diameter and equally deep. I removed any soft unhealthy tissue back to what appeared to be normal bone using a curette. I then used a bulb syringe to irrigate a liter of saline into the MCP joint metacarpal head and throughout the wound. Tourniquet then let down and m eticulous hemostasis was achieved. I took 1/4 inch [place] drain and tucked it on the dorsal aspect of the metacarpal phalangeal joint underneath the extensor tendon which was allowed to fall back into place. I did not place the drain between the bones. The surrounding tissue was inflamed but otherwise healthy. I looked into the second webspace did not see any purulence. I then went ahead and closed the skin around the drain with near far far near stitches. 4-0 nylon. Then 2 simple stitches proximally and distally. The hand was cleaned with wet and dry sponges and then a bulky soft sterile dressing was applied. Hand dressing with fluffs between the fingers 4 x 4's Xeroform soft wrap and a volar splint from the mid forearm to the fingertips with the wrist slightly extended and the fingers in slight flexion. Fernando wrap. Patient waken from anesthesia without difficulty. Taken to recovery in stable condition. There were no complications. Specimens were as mentioned above. Counts were correct and blood loss is estimated to be 10 cc. At the conclusion the operation there was no contact. Plan is to admit to the hospital continue IV antibiotics. I think we will probably need to get an infectious disease consultation as I am concerned regarding early osteomyelitis of the second metacarpal head due to the puncture from the tooth. I attest to the content of the Intraoperative Record and any orders documented therein. Any exceptions are noted below.
[2024-01-09] MEDS ORDERED: LIDOCAINE 1%/EPINEPHRINE 1:100,000 20 ML VIAL INFIL ONE (14:45)
[2024-01-09] MEDS ORDERED: ePHEDrine sulfate 50 MG/ML AMP IV PRN (14:53)
[2024-01-09] MEDS ORDERED: ATROPINE SULFATE 0.1 MG/ML 10ML SYR IV PRN (14:53)
[2024-01-09] MEDS ORDERED: ONDANSETRON INJ 2 MG/ML 2 ML VIAL IV PRN (14:53)
[2024-01-09] MEDS: fentaNYL citrate PF 100 MCG/2 ML VIAL IV PRN (14:56)
--- NOTE | 2024-01-09 15:04 | Operative Report ---
Post Operative Report Pre & Post Diagnosis Operation Date: 01/09/24 13:00 Pre-Op Diagnosis: 1. Dog bite right hand, 2. Cellulitis of right hand Post-Op Diagnosis: 1. Dog bite right hand, 2. Cellulitis of right hand I identified the patient and participated in the time-out.: Yes Procedure Operation Date: 01/09/24 13:00 Actual Procedures p Incision and Drainage Right Hand(Right) - Kevin Solorio MD Surgeon Kevin Solorio MD Terminal System Operator Luan Richardson PA-C no resident or fellow available Estimated Blood Loss 10 Findings Consistent with Post-Op Diagnosis Specimens Wound culture and tissue specimen Drains Bar Description of Procedure Please refer to Dr. Solorio's procedure note for full details. I was present during the entire case. I assisted with prepping, draping, retraction, wound closure, dressing application, and splinting. I attest to the content of the Intraoperative Record and any orders documented therein. Any exceptions are noted below.
[2024-01-09] MEDS: fentaNYL citrate PF 100 MCG/2 ML VIAL ONE (15:13)
[2024-01-09] MEDS ORDERED: NALOXONE HCL 0.4 MG/1 ML VIAL/CARP IV PRN (15:46)
--- NOTE | 2024-01-09 15:53 | Anesthesiology Progress Note ---
Date of Service January 09, 2024 Anesthesia Post Procedure Vital Signs Vital Signs: Temp Pulse Pulse Pulse Resp BP BP 01/09/24 15:25 36.9 C 83 22 131/83 01/09/24 15:15 82 15 123/79 01/09/24 15:05 80 13 130/81 01/09/24 14:55 85 20 114/74 01/09/24 14:46 36.6 C 95 H 16 141/83 H 01/09/24 11:26 36.5 C 82 18 142/76 H 01/09/24 07:37 36.7 C 80 18 134/77 01/09/24 07:11 78 01/09/24 02:47 36.7 C 91 H 18 152/86 H 01/09/24 01:42 01/08/24 22:56 36.8 C 86 18 144/85 H 01/08/24 21:58 94 H 01/08/24 21:33 36.7 C 64 18 134/77 01/08/24 21:30 108 H 01/08/24 21:26 36.7 C 64 18 134/77 01/08/24 21:26 01/08/24 20:55 36.9 C 103 H 18 143/91 H 01/08/24 20:00 103 H 18 143/81 H 01/08/24 19:12 36.6 C 101 H 20 143/91 H 01/08/24 16:33 87 17 157/90 H Pulse Ox Pulse Ox O2 Del Method O2 Del Method O2 Flow Rate 01/09/24 15:25 94 Nasal Cannula 2 01/09/24 15:15 94 Oxymask 3 01/09/24 15:05 95 Oxymask 7 01/09/24 14:55 97 Oxymask 7 01/09/24 14:46 96 Oxymask 7 01/09/24 11:26 96 Room Air 01/09/24 07:37 95 Room Air 01/09/24 07:11 01/09/24 02:47 94 Room Air 01/09/24 01:42 Room Air 01/08/24 22:56 95 Room Air 01/08/24 21:58 01/08/24 21:33 100 Room Air 01/08/24 21:30 01/08/24 21:26 100 Room Air 01/08/24 21:26 100 Room Air 01/08/24 20:55 96 Room Air 01/08/24 20:00 96 Room Air 01/08/24 19:12 94 Room Air 01/08/24 16:33 96 Room Air Pain Intensity Right Hand: Pain Intensity: 5 Transfer of Care Handoff Completed per policy Notes Mental Status: alert / awake / arousable Patient Amnestic to Procedure: Yes Nausea / Vomiting: adequately controlled Pain: adequately controlled Airway Patency, RR, SpO2: stable & adequate BP & HR: stable & adequate Hydration State: stable & adequate Anesthetic Complications: no major complications apparent and Pt Satisfied with anesthetic care
[2024-01-09] MEDS: KETOROLAC TROMETHAMINE 15 MG/ML VIAL IV PRN (17:26)
[2024-01-10] MEDS: oxyCODONE HCL IR 5 MG TAB (IMMEDIATE RELEASE) PO PRN (01:07)
[2024-01-10 08:42] LABS: Hematocrit (blood only) 36.5 % (42.0-52.0); Hemoglobin 11.8 g/dl (14.0-18.0); Mean Corpuscular Hemoglobin 28.4 pg (25.0-34.0); Mean Corpuscular Hgb Conc 32.3 g/dL (32.0-36.0); Mean Corpuscular Volume 87.7 fL (80.0-100.0); Mean Platelet Volume 9.4 fL (9.4-12.4); Platelet Count 220 K/uL (130-400); RDW Standard Deviation 41.5 fL (36.4-46.3); Red Blood Count 4.16 M/uL (4.70-6.10); White Blood Count 7.77 K/ul (4.8-10.8)
[2024-01-10 08:59] LABS: BUN Creatinine Ratio 16.3 (10-20); Calcium 8.5 mg/dl (8.6-10.3); Creatinine Clr Calc Pharmacy 86.1 ml/min; Potassium 4.1 mmol/L (3.5-5.1)
--- NOTE | 2024-01-10 09:58 | Orthopedic Progress Note ---
Date of Service January 10, 2024 Assessment & Plan (1) Dog bite: Plan: POD 1 -s/p incision and drainage and debridement of his right index finger with Dr. Solorio Encouraged elevation of his right hand above his heart as frequently as possible. He may do gentle range of motion of his fingers as the splint and dressings allow. He may be out of bed as tolerated. Continue IV Unasyn as per primary service. Postoperative dressings left in place. Will plan to change dressings tomorrow. Does have a Bar drain which will also potentially be pulled tomorrow. Infectious disease consult placed. Will discuss with them due to bony and possible joint involvement whether he would need continued IV antibiotics with potential PICC line. Continue regular diet. Will continue to follow and reevaluate his right hand tomorrow. All questions were answered. Postoperative course was discussed. Dr. Solorio present for today's visit. Case management for disposition needs. (2) Cellulitis of hand, right: Plan: See above Admission and Anticipated Discharge Date Admission Date: January 09, 2024 Subjective Patient is resting in bed. No complaints of significant pain in the right hand. He is at elevated on a couple of pillows. Denies any numbness or tingling in his fingers. Overall states that he does feel that he has less pain today. He is otherwise not feeling like he has had a fever or chills. Denies any nausea or vomiting. Denies any lightheadedness or dizziness. Has tolerated IV antibiotics. Tolerating regular diet. Physical Exam Musculoskeletal: Exam of his right hand: Postoperative dressings are clean, dry and intact. Splint is in place. Capillary refill is brisk of all of his fingers. He is able to gently move his fingers but movement of the index finger does reproduce a little discomfort. He is able to separate his fingers and hold against resistance. Full range of motion of the shoulder and elbow was noted. Results & Data Vital Signs (Past 12 Hours) Vital Signs Temp Pulse Pulse Pulse Resp BP Pulse Ox 01/10/24 08:24 01/10/24 07:53 36.4 C L 81 18 138/73 01/10/24 07:07 83 01/10/24 03:06 36.9 C 79 18 139/79 92 01/09/24 22:48 37.2 C 83 18 127/71 94 Pulse Ox O2 Del Method O2 Del Method 01/10/24 08:24 94 Room Air 01/10/24 07:53 Room Air 01/10/24 07:07 01/10/24 03:06 Room Air 01/09/24 22:48 Room Air Laboratory Results 01/08/24 19:30 Aerobic Blood Culture - Preliminary Blood No growth in Aerobic bottle after 24 hours. Anaerobic Blood Culture - Preliminary No growth in Anaerobic bottle after 24 hours. 01/09/24 13:37 Gram Stain - Final Bone Aerobic and Anaerobic Culture - Pending 01/09/24 13:37 Gram Stain - Final Finger,Right Aerobic and Anaerobic Culture - Pending 01/09/24 13:37 Gram Stain - Final Finger,Right Index Aerobic and Anaerobic Culture - Pending 01/09/24 13:37 Gram Stain - Final Finger,Right Index Aerobic and Anaerobic Culture - Pending 01/10/24 07:31 WBC 7.77 RBC 4.16 L Hgb 11.8 L Hct 36.5 L MCV 87.7 MCH 28.4 MCHC 32.3 RDW Std Deviation 41.5 RDW Coeff of Ramu 13.0 Plt Count 220 MPV 9.4 Sodium 139 Potassium 4.1 Chloride 108 H Carbon Dioxide 26 Anion Gap 5 BUN 15 Creatinine 0.92 Est Cr Clr Drug Dosing 86.1 eGFR 97.02 BUN/Creatinine Ratio 16.3 Glucose 100 H Calcium 8.5 L
--- NOTE | 2024-01-10 10:49 | Hospitalist Progress Note ---
Date of Service January 10, 2024 Assessment & Plan (1) Cellulitis of hand, right: (2) Dog bite: Plan: 58 year old male with PMH tobacco use presented to ER with c/o dog bite to hand 2 days ago with increased edema and erythema. Pt's pet dog and reported up to d ate with vaccinations. Denies fever/chills Seen by urgent care on the day prior to presentation and started Augmentin however continued worsening In ER afebrile.HR: 114, down to 87, R: 20, BP 157/90, 96% on room air WBC: 10.9 CT Hand noted indentation of dorsal aspect of right 2nd Metacarpal head, suggestive of nondisplaced fracture. Probable additional fracture of fright 3rd metacarpal head. Small amount of fluid in right 2nd MCP joint with peripheral enhancement. Dorsal subcut edema of right hand, wrist and forearm Got Tetanus shot in ER Reported his dog is fully vaccinated Continue IV unasyn Ortho evaluated and performed Incision and Drainage of right hand on 01/09/24 POD 1 Pain is well controlled Awaiting ID recs consulted by Ortho (3) Elevated blood pressure reading: Plan: In ER BP: 157/90 Pt doesn't follow with PCP and not had recent BP measurements. Possible elevated BP due to acute illness vs undiagnosed Hypertension BP has been stable (4) Tobacco use: Plan: Smokes 1ppd Had been counseled regarding smoking cessation DVT Prophylaxis SCDs for now, Ambulate Full Code I spent a total of 45 minutes coordinating, documenting and providing care for this patient excluding time spent in performance of separately billed services Admission and Anticipated Discharge Date Admission Date: January 09, 2024 Subjective Patient seen and examined Had I&D by Ortho yesterday Reports minimal pain in Right hand surgical site Denied all other complaints Physical Exam Constitutional: + well hydrated; no acute distress Eyes: PERRL, conjunctivae normal, anicteric sclerae ENMT: external ear and nose normal, oropharynx normal Respiratory: normal respiratory effort, lungs clear to auscultation Cardiovascular: Rate/Rhythm: regular rate and regular rhythm Gastrointestinal (Abdomen): normal bowel sounds, soft, nontender, no hepatosplenomegaly Musculoskeletal: Right hand bandaged Neurologic: PERRL, EOMI, accommodation nl, no face palsy, no dysarthria Psychiatric: A+Ox3, euthymic affect Results & Data Results & Data Vital Signs (Past 12 Hours) Vital Signs Temp Pulse Pulse Pulse Resp BP Pulse Ox 01/10/24 08:24 01/10/24 07:53 36.4 C L 81 18 138/73 01/10/24 07:07 83 01/10/24 03:06 36.9 C 79 18 139/79 92 Pulse Ox O2 Del Method O2 Del Method 01/10/24 08:24 94 Room Air 01/10/24 07:53 Room Air 01/10/24 07:07 01/10/24 03:06 Room Air Laboratory Results Abnormal lab results 01/10/24 Range/Units 07:31 RBC 4.16 L (4.70-6.10) M/uL Hgb 11.8 L (14.0-18.0) g/dl Hct 36.5 L (42.0-52.0) % Chloride 108 H (98-107) mmol/L Glucose 100 H (70-99(Fasting)) mg/dl Calcium 8.5 L (8.6-10.3) mg/dl
[2024-01-11 06:28] LABS: Hematocrit (blood only) 38.1 % (42.0-52.0); Hemoglobin 12.2 g/dl (14.0-18.0); Mean Corpuscular Volume 87.6 fL (80.0-100.0); Mean Platelet Volume 9.3 fL (9.4-12.4); Platelet Count 231 K/uL (130-400); RDW Coefficient of Variation 12.6 % (11.5-14.5); RDW Standard Deviation 40.7 fL (36.4-46.3); Red Blood Count 4.35 M/uL (4.70-6.10); White Blood Count 7.09 K/ul (4.8-10.8)
[2024-01-11 06:36] LABS: BUN Creatinine Ratio 13.3 (10-20); Calcium 8.7 mg/dl (8.6-10.3); Creatinine Clr Calc Pharmacy 80.8 ml/min
--- NOTE | 2024-01-11 10:32 | Orthopedic Progress Note ---
Date of Service January 11, 2024 Assessment & Plan (1) Dog bite: Plan: POD 2-s/p incision and drainage and debridement of his right index finger with Dr. Solorio Encouraged elevation of his right hand above his heart as frequently as possible. He may do gentle range of motion of his fingers as the dressings allow. Splint removed and kept off today. He may be out of bed as tolerated. Continue Antibiotics as per primary service. Dressings were changed today. Awaiting Infectious disease consult. Will discuss with them due to bony and possible joint involvement whether he would need continued IV antibiotics with potential PICC line. Continue regular diet. No plans for repeat surgical intervention at this time. Will continue to follow. All questions were answered. Patient understands and agrees with the plan. Postoperative course was discussed. Case management for disposition needs. Dr. Solorio present for today's visit. (2) Cellulitis of hand, right: Plan: See above Admission and Anticipated Discharge Date Admission Date: January 09, 2024 Subjective Patient is resting in bed. No complaints of pain in his right hand. Each day notices improvement. States that he can move it more today. Denies any fevers or chills. Has been keeping it elevated above his heart as frequently as possible. Physical Exam Musculoskeletal: Exam of his right upper extremity: The postoperative dressings and splint removed today. He has a Bar drain in place in the center aspect of incision which is removed today. There are some mild maceration of the skin edges of the incision. No purulent drainage expressed with light pressure along the second MCP joint. Tolerates active and passive range of motion of all of his finger joints, With mild discomfort. Minimal edema. Sensation is intact. Capillary fill is brisk. Nontender throughout the rest of his hand or fingers. Sutures are retained. A new dressing was applied with Adaptic, 4 x 4's and Kerlix. Results & Data Vital Signs (Past 12 Hours) Vital Signs Temp Pulse Pulse Resp BP Pulse Ox O2 Del Method 01/11/24 07:43 36.7 C 74 18 145/81 H 93 Room Air 01/11/24 07:40 82 01/11/24 03:13 36.0 C L 74 16 144/68 H 96 Room Air 01/10/24 22:41 36.5 C 82 18 135/76 94 Room Air Laboratory Results 01/08/24 19:30 Aerobic Blood Culture - Preliminary Blood No growth in Aerobic bottle after 48 hours. Anaerobic Blood Culture - Preliminary No growth in Anaerobic bottle after 48 hours. 01/09/24 13:37 Gram Stain - Final Bone Aerobic and Anaerobic Culture - Preliminary No growth to date. 01/09/24 13:37 Gram Stain - Final Finger,Right Aerobic and Anaerobic Culture - Preliminary No growth to date. 01/09/24 13:37 Gram Stain - Final Finger,Right Index Aerobic and Anaerobic Culture - Preliminary No growth to date. 01/09/24 13:37 Gram Stain - Final Finger,Right Index Aerobic and Anaerobic Culture - Preliminary No growth to date. 01/11/24 05:43 WBC 7.09 RBC 4.35 L Hgb 12.2 L Hct 38.1 L MCV 87.6 MCH 28.0 MCHC 32.0 RDW Std Deviation 40.7 RDW Coeff of Ramu 12.6 Plt Count 231 MPV 9.3 L Sodium 140 Potassium 4.0 Chloride 107 Carbon Dioxide 27 Anion Gap 6 BUN 13 Creatinine 0.98 Est Cr Clr Drug Dosing 80.8 eGFR 89.94 BUN/Creatinine Ratio 13.3 Glucose 105 H Calcium 8.7
[2024-01-11] MEDS: DOCUSATE SODIUM/SENNA 50/8.6MG TAB PO SCH (11:04)
--- NOTE | 2024-01-11 12:29 | Infectious Disease Consult ---
Date of Consultation January 11, 2024 Assessment & Plan (1) Cellulitis of hand, right: (2) Dog bite: Plan This is a 58-year-old male with a past medical history of tobacco use who presented to the ED after adog bite 2 days prior. Dog is his pet dog and is up-to-date with vaccinations. Dog bit him after he accidently hit his sore lef. Dog latched on to his R hand and he was unable to remove him for about 1 minute He denies fever, chills, sweats, nausea, vomiting. He developed R hand and swelling was seen in urgent care. He was started on Augmentin however he continued to have increasing pain, erythema, swelling, so he was presented to the ER for further evaluaion . In the ED afebrile, heart rate 114, RR 20, blood pressure 157/90, O2 sats 96% on room air. Labs: WBC 10.92, BUN 12, creatinine 0.87. CT hand noted indentation of dorsal aspect of the right second metacarpal head, suggestive of nondisplaced fracture. Probable additional fracture of right third metacarpal head. Small amount of fluid in the right second MCP joint with peripheral enhancement. Dorsal subcutaneous edema of right hand, wrist, forearm. Hand x-ray showed dorsal soft tissue swelling with no acute bony abnormality. A tiny radiodense foreign body is seen in the fourth digit. He received tetanus vaccine in ED and was started on Unasyn. He underwent incision and drainage of the right index finger with irrigation of the metacarpophalangeal joint and debridement of the second metacarpal head phalangeal joint and debridement of the second metacarpal head. Per op report there was a solitary puncture on the volar aspect of the metacarpal phalangeal joint without redness fluctuance or drainage. On the dorsal aspect of the hand there were multiple punctures and abrasions over the metacarpal phalangeal joint. Slight fluctuance was noted and with some pressure,purulence was e xpressed from the larger wound on the more ulnar side of the joint. Upon incision a small amount of purulence was noted from the right index finger wound. There was an obvious puncture of the second metacarpal head, cultures were obtained of the metacarpal phalangeal joint and metacarpal head. Tenosynovium was debrided. bone cultures obtained from the second metacarpal head obtained and growing Pasteurella canis/oralis. ID consulted for dog bite s/p I and D. Patient has less hand pain. 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 Surgical path and OR cx pending. Recommendations Continue Unasyn 3 g Iv q 6h for now pending OR cx and sensi FU OR cx and PATH Anticipate 6 wks IV abx as bone involvement. Thank you for this consult. ID will continue to follow Srikanth Ross MD, MPH Infectious Disease [facility] Call [phone] with questions Consultation Information Consultation was provided via telemedicine using two-way real-time interactive telecommunication between the patient and the telemedicine provider. For the duration of the visit, the provider was performing the assessment from a different facility than the patient. This includesuse of bluetooth stethoscope forauscultationperformed by the telepresenter that the telemedicine provider can hear if described in the physical exam. Cashier Associate contact information: Please call [facility] Center . (Phone Number For Physician Use Only) After establishing a telemedicine visit, patient was: Patient was verified with two unique identifiers Time Spent with Patient: Initial => 75 min History of Present Illness Reason for Consultation: Dog bite , sp I and D Requesting Physician: TARSHA Wagner Attending Physician: Cheyenne Feliciano MD History of Present Illness This is a 58-year-old male with a past medical history of tobacco use who presented to the ED after adog bite 2 days prior. Dog is his pet dog and is up-to-date with vaccinations. Dog bit him after he accidently hit his sore lef. Dog latched on to his R hand and he was unable to remove him for about 1 minute He denies fever, chills, sweats, nausea, vomiting. He developed R hand and swelling was seen in urgent care. He was started on Augmentin however he continued to have increasing pain, erythema, swelling, so he was presented to the ER for further evaluaion . In the ED afebrile, heart rate 114, RR 20, blood pressure 157/90, O2 sats 96% on room air. Labs: WBC 10.92, BUN 12, creatinine 0.87. CT hand noted indentation of dorsal aspect of the right second metacarpal head, suggestive of nondisplaced fracture. Probable additional fracture of right third metacarpal head. Small amount of fluid in the right second MCP joint with peripheral enhancement. Dorsal subcutaneous edema of right hand, wrist, forearm. Hand x-ray showed dorsal soft tissue swelling with no acute bony abnormality. A tiny radiodense foreign body is seen in the fourth digit. He received tetanus vaccine in ED and was started on Unasyn. He underwent incision and drainage of the right index finger with irrigation of the metacarpophalangeal joint and debridement of the second metacarpal head phalangeal joint and debridement of the second metacarpal head. Per op report there was a solitary puncture on the volar aspect of the metacarpal phalangeal joint without redness fluctuance or drainage. On the dorsal aspect of the hand there were multiple punctures and abrasions over the metacarpal phalangeal joint. Slight fluctuance was noted and with some pressure,purulence was expressed from the larger wound on the more ulnar side of the joint. Upon incision a small amount of purulence was noted from the right index finger wound. There was an obvious puncture of the second metacarpal head, cultures were obtained of the metacarpal phalangeal joint and metacarpal head. Tenosynovium was debrided. bone cultures obtained from the second metacarpal head obtained and growing Pasteurella canis/oralis. ID consulted for dog bite s/p I and D. Patient has less hand pain. Allergies Allergy/AdvReac Type Severity Reaction Status Date / Time No Known Allergies Allergy Unknown Verified 06/15/04 19:29 [id number] Allergy Unknown Uncoded 04/28/02 20:24 N Allergy Unknown Uncoded 04/28/02 20:24 Home Medications Medication Instructions Recorded Confirmed Type amoxicillin 875 mg-potassium 1 tab PO BID 01/08/24 01/08/24 History clavulanate 125 mg tablet ibuprofen 800 mg tablet 800 mg PO DIRECTED PRN Pain 01/08/24 01/08/24 History mupirocin 2 % topical ointment 1 applic topical DIRECTED 01/08/24 01/08/24 History tramadol 50 mg tablet 50 mg PO DIRECTED PRN Pain 01/08/24 01/08/24 History Patient History Medical History Tobacco use Surgical History History of rotator cuff surgery Family History Father Heart disease Other Cancer Social History Smoking Status: Current every day smoker Tobacco Type: Cigarettes Cigarettes Per Day: 1 ppd; Second Hand Exposure: Yes; Do You Dip or Chew Tobacco: No; Tobacco Cessation Education Requested by Patient: No Hx Alcohol Use: No Hx Substance Use: No Preferred Language: Pashto Communication Ability: Effective Material Control Supervisor Required: No Beliefs That Will Affect Care: None Current Living Situation: Alone Other Information That Helps Us Care for You: No Feels Safe at Home: Yes Safety Concerns: Feels Safe At This Time Assistive Devices: None Assistive Devices Comment: Independent Review of System A 10 point ROS. Pertinent positives as per HPI Physical Exam Physical Exam: Gen- NAD, comfortable Neck- supple Lungs- No increased work of breathing Extremities- Right hand dressed. Moves fingers. Edema R> L. Edema improved per pt. No LE edema Abdomen- soft, not tender, not distended Neuro- AAO times 3 Psych- cooperative, normal mood Results & Data Vital Signs (Past 12 Hours) Vital Signs Temp Pulse Pulse Resp BP Pulse Ox O2 Del Method 01/11/24 11:44 36.6 C 84 16 152/83 H 93 Room Air 01/11/24 07:43 36.7 C 74 18 145/81 H 93 Room Air 01/11/24 07:40 82 01/11/24 03:13 36.0 C L 74 16 144/68 H 96 Room Air Laboratory Results Laboratory Results - last 48 hr 01/10/24 01/11/24 07:31 05:43 WBC 7.77 7.09 RBC 4.16 L 4.35 L Hgb 11.8 L 12.2 L Hct 36.5 L 38.1 L MCV 87.7 87.6 MCH 28.4 28.0 MCHC 32.3 32.0 RDW Std Deviation 41.5 40.7 RDW Coeff of Ramu 13.0 12.6 Plt Count 220 231 MPV 9.4 9.3 L Sodium 139 140 Potassium 4.1 4.0 Chloride 108 H 107 Carbon Dioxide 26 27 Anion Gap 5 6 BUN 15 13 Creatinine 0.92 0.98 Est Cr Clr Drug Dosing 86.1 80.8 eGFR 97.02 89.94 BUN/Creatinine Ratio 16.3 13.3 Glucose 100 H 105 H Calcium 8.5 L 8.[address] 01/08/24 18:[address] WITH CONTRAST CLINICAL HISTORY: dog bite, r/o abscess COMPARISON STUDY: No previous studies for comparison. TECHNIQUE: Axial images of the right hand were obtained following intravenous injection of 94 cc Optiray 320 IV. Sagittal and coronal reconstructions were viewed. Automated exposure control was utilized for the study. A dose lowering technique was utilized adhering to the principles of ALARA. FINDINGS: Alignment of the right hand and right wrist is anatomic. On axial image 88 of 183, there is indentation of the dorsal aspect of the right second metacarpal head. This suggests an acute fracture. A bony erosion could appear similar. This also subtle lucency and cortical irregularity of the dorsal right third metacarpal head suggestive of a nondisplaced fracture. There is extensive dorsal subcutaneous edema of the right hand and forearm. This is partially imaged on this exam. No soft tissue gas is present. A small amount of fluid centered on the right second metacarpophalangeal joint is noted with peripheral enhancement. No additional fluid collections are identified. No additional fractures are identified. Carpal bones are intact. There is moderate osteoarthrosis of the right first carpometacarpal joint. Incidental note is made of a 1.5 cm lucent lesion within the base of the right first metacarpal. There is no CT evidence for tenosynovitis. IMPRESSION: 1. Indentation of the dorsal aspect of the right second metacarpal head. Given the clinical history, this is suggestive of a nondisplaced fracture. Probable additional fracture of the right third metacarpal head. 2. Small amount of fluid centered on the right second metacarpophalangeal joint with peripheral enhancement. This is likely related to the recent dog bite and may be posttraumatic. However, an infectious process with septic arthritis/developing abscess is the diagnosis of exclusion. No additional rim- enhancing fluid collections. 3. Dorsal subcutaneous edema of the right hand, wrist and forearm, partially imaged on this exam. This suggests extensive cellulitis. No soft tissue gas. ACT 112: Negative or not required by law. Electronically signed by: Jeffrey Godfrey M.D. 01/08/2024 7:16 PM Hand X-Ray 01/09/24 10:09 RIGHT HAND 3 VIEWS CLINICAL HISTORY: Dogbite injury. Infection. FINDINGS: 3 views of the right hand are correlated with CT scan of the hand dated 01/08/2024. The skeletal structures are well mineralized. There is no radiographic evidence of acute fracture. Mild arthritic change is seen in the wrist and hand, greatest at the first carpometacarpal and metacarpophalangeal joints. There is dorsal soft tissue edema. No soft tissue gas is identified. A tiny radiodense foreign body is seen within the palmar aspect of the fourth digit at the level of the middle phalangeal head. IMPRESSION: 1. Dorsal soft tissue swelling with no acute bony abnormality identified. 2. The tiny impaction fractures suggested by CT are not visualized on x-ray. 3. A tiny radiodense foreign body is seen in the fourth digit as above. Electronically signed by: Gregorio Tomas M.D. 01/09/2024 10:52 AM Medications Administered Microbiology 01/08/24 19:30 Blood Aerobic Blood Culture - Preliminary No growth in Aerobic bottle after 48 hours. 01/08/24 19:30 Blood Anaerobic Blood Culture - Preliminary No growth in Anaerobic bottle after 48 hours. 01/09/24 13:37 Bone Gram Stain - Final 01/09/24 13:37 Bone Aerobic and Anaerobic Culture - Preliminary No growth to date. 01/09/24 13:37 Finger,Right Gram Stain - Final 01/09/24 13:37 Finger,Right Aerobic and Anaerobic Culture - Preliminary No growth to date. 01/09/24 13:37 Finger,Right Index Gram Stain - Final 01/09/24 13:37 Finger,Right Index Aerobic and Anaerobic Culture - Preliminary No growth to date. 01/09/24 13:37 Finger,Right Index Gram Stain - Final 01/09/24 13:37 Finger,Right Index Aerobic and Anaerobic Culture - Preliminary No growth to date.
--- NOTE | 2024-01-11 15:23 | Hospitalist Progress Note ---
Date of Service January 11, 2024 Assessment & Plan (1) Cellulitis of hand, right: (2) Dog bite: Plan: 58 year old male with PMH tobacco use presented to ER with c/o dog bite to hand 2 days ago with increased edema and erythema. Pt's pet dog and reported up to d ate with vaccinations. Denies fever/chills Seen by urgent care on the day prior to presentation and started Augmentin however continued worsening In ER afebrile.HR: 114, down to 87, R: 20, BP 157/90, 96% on room air WBC: 10.9 CT Hand noted indentation of dorsal aspect of right 2nd Metacarpal head, suggestive of nondisplaced fracture. Probable additional fracture of fright 3rd metacarpal head. Small amount of fluid in right 2nd MCP joint with peripheral enhancement. Dorsal subcut edema of right hand, wrist and forearm Got Tetanus shot in ER Reported his dog is fully vaccinated Continue IV unasyn Ortho evaluated and performed Incision and Drainage of right hand on 01/09/24 POD 2 Pain is well controlled ID prelim notes today noted to continue IV unasyn and will discuss with Surgery; if c/f OM and joint involvement, anticipate 6 weeks of IV abx and PICC Bone culture prelim - Pasteurella canis/oralis (3) Elevated blood pressure reading: Plan: In ER BP: 157/90 Pt doesn't follow with PCP and not had recent BP measurements. Possible elevated BP due to acute illness vs undiagnosed Hypertension (4) Tobacco use: Plan: Smokes 1ppd Had been counseled regarding smoking cessation DVT Prophylaxis SCDs for now, Ambulate Full Code I spent a total of 50 minutes coordinating, documenting and providing care for this patient excluding time spent in performance of separately billed services Admission and Anticipated Discharge Date Admission Date: January 09, 2024 Subjective Patient seen and examined Right hand pain is well controlled Reports some constipation Denied other complaints on ROS Physical Exam Constitutional: + well hydrated; no acute distress Eyes: PERRL, conjunctivae normal, anicteric sclerae ENMT: external ear and nose normal, oropharynx normal Respiratory: normal respiratory effort, lungs clear to auscultation Cardiovascular: Rate/Rhythm: regular rate and regular rhythm Gastrointestinal (Abdomen): normal bowel sounds, soft, nontender, no hepatosplenomegaly Musculoskeletal: Right hand bandaged Neurologic: PERRL, EOMI, accommodation nl, no face palsy, no dysarthria Psychiatric: A+Ox3, euthymic affect Results & Data Results & Data Vital Signs (Past 12 Hours) Vital Signs Temp Pulse Pulse Resp BP Pulse Ox O2 Del Method 01/11/24 15:06 86 01/11/24 11:44 36.6 C 84 16 152/83 H 93 Room Air 01/11/24 07:43 36.7 C 74 18 145/81 H 93 Room Air 01/11/24 07:40 82 Laboratory Results Abnormal lab results 01/11/24 Range/Units 05:43 RBC 4.35 L (4.70-6.10) M/uL Hgb 12.2 L (14.0-18.0) g/dl Hct 38.1 L (42.0-52.0) % MPV 9.3 L (9.4-12.4) fL Glucose 105 H (70-99(Fasting)) mg/dl
[2024-01-11] MEDS: amLODIPine BESYLATE 5 MG TAB PO SCH (16:30)
[2024-01-11] MEDS: INFLUENZA VACC TS2024-25(6m+)/PF (IIV3) 0.5mL Syr IM ONE (20:25)
[2024-01-11] MEDS: MELATONIN 3 MG TAB PO PRN (22:27)
[2024-01-11] MEDS: KETOROLAC TROMETHAMINE 15 MG/ML VIAL IV ONE (22:27)
[2024-01-12 06:25] LABS: Hematocrit (blood only) 36.4 % (42.0-52.0); Hemoglobin 12.2 g/dl (14.0-18.0); Mean Corpuscular Hemoglobin 28.2 pg (25.0-34.0); Mean Corpuscular Hgb Conc 33.5 g/dL (32.0-36.0); Mean Corpuscular Volume 84.1 fL (80.0-100.0); Mean Platelet Volume 9.1 fL (9.4-12.4); Platelet Count 238 K/uL (130-400); RDW Coefficient of Variation 12.4 % (11.5-14.5); RDW Standard Deviation 37.8 fL (36.4-46.3); Red Blood Count 4.33 M/uL (4.70-6.10)
[2024-01-12 06:47] LABS: BUN Creatinine Ratio 17.5 (10-20); Calcium 8.9 mg/dl (8.6-10.3); Creatinine Clr Calc Pharmacy 76.6 ml/min
--- NOTE | 2024-01-12 11:56 | Orthopedic Progress Note ---
Date of Service January 12, 2024 Assessment & Plan (1) Dog bite: Plan: Have you done anybody GEN feels much better. Improved movement. He is afebrile. His white blood cell count is normal. The bone culture has grown out Pasteurella canis. No sensitivities to follow. This comes from the bone. Therefore there was likely osteomyelitis and the plan is for 6 weeks of IV antibiotics. He is supposed to get IV access. If he leaves today then we can follow-up with him Finesse in the office for a wound check. He is to elevate ice. Leave the dressing on keep clean and dry. He may do some simple movement of the fingers. His dressing was changed today. Swelling improved. Redness diminished. There is no fluctuance or drainage. The wound was healing well. He had about a 5 degree extensor lag and he can flex about 50%. All improved compared to previous. A new dressing was applied. (2) Cellulitis of hand, right: Plan: See above Admission and Anticipated Discharge Date Admission Date: January 09, 2024
[2024-01-12 12:22] VITALS: BP 149/89
[2024-01-12 15:19] VITALS: PULSE 81; RESP 16; TEMP 98.2; O2SAT 94
--- NOTE | 2024-01-12 15:29 | Discharge Summary ---
Date of Service January 12, 2024 Admission HPI Per Admitting Provider Patient is 58 year old male with PMH tobacco use presented to ER with c/o dog bite to hand with increased edema and erythema. Patient states to nights ago he went to look at his pet dog's leg and his dog bit him on his right hand. Patient states had some swelling to area yesterday and went to urgent care. He reports had reported negative x-ray hand and was given IM Rocephin and sent home on Augmentin. Patient states today has had increased swelling and redness to hand and fingers and limited range of motion of fingers. He has been attempting to keep hand elevated and has taking ibuprofen intermittently for discomfort. Reports last tetanus shot greater than 5 years ago. Patient reports dog is up-to-date on his vaccinations. He does not follow with PCP and hasn't had his BP checked until yesterday when was told it was "a little elevated". Denies fever/chills, diaphoresis, N/V/D/C, DAHL, dizziness, syncope, CP, SOB, cough, sore throat, rhinorrhea, abdominal pain, paresthesias, other extremity edema, other rashes, urinary symptoms. Admission Exam Per Admitting Provider General: no distress, WDWN Head: normocephalic, atraumatic Eyes: conjunctiva non-injected, anicteric ENT: normal inspection external ears, nose, mucous membranes moist Neck: supple, trachea midline, non-tender Lungs: clear, no respiratory distress, no wheezing/rhonchi/rales CV: RRR, no murmur, no pretibial edema Abd: normal BS, soft, non-tender Ext: no cyanosis, no calf tenderness; RUE: Right hand with puncture wounds over distal 2nd metacarpal region without noted discharge. +diffuse edema and erythema to hand extending to fingers and erythema extends up to wrist (marked with skin marker), Skin is warm and tender to palpation. Limited ROM of 2-5 fingers. Sensation to light touch intact Neuro: A&O x 3, no focal deficits noted, normal affect Skin: warm, dry, as above in ext Principal Diagnosis Right hand dog bite Right hand cellulitis/SSTI Osteomyelitis of 2nd metacarpal/Septic arthritis Hypertension Discharge Exam Constitutional + well hydrated; no acute distress Eyes PERRL, conjunctivae normal, anicteric sclerae ENMT external ear and nose normal, oropharynx normal Respiratory normal respiratory effort, lungs clear to auscultation Cardiovascular Rate/Rhythm: regular rate and regular rhythm Gastrointestinal (Abdomen) normal bowel sounds, soft, nontender, no hepatosplenomegaly Musculoskeletal Right hand bandaged Neurologic PERRL, EOMI, accommodation nl, no face palsy, no dysarthria Psychiatric A+Ox3, euthymic affect Discharge Data Allergies Allergy/AdvReac Type Severity Reaction Status Date / Time No Known Allergies Allergy Unknown Verified 06/15/04 19:29 [id number] Allergy Unknown Uncoded 04/28/02 20:24 N Allergy Unknown Uncoded 04/28/02 20:24 Consultations 01/08/24 17:49 ED Decision to Admit Stat 01/08/24 21:26 Consult Orthopedic Surgery Routine 01/10/24 10:07 Consult Infectious Diseases Routine Procedures Performed Operation Date: 01/09/24 13:00 Actual Procedures p Incision and Drainage Right Hand(Right) - Kevin oSlorio MD Ordered Studies 01/08/24 18:18 CT hand RT w con Urgent Hospital Course (1) Cellulitis of hand, right: (2) Dog bite: 58 year old male with PMH tobacco use presented to ER with c/o dog bite to hand 2 days ago with increased edema and erythema. Pt's pet dog and reported up to date with vaccinations. Denies fever/chills Seen by urgent care on the day prior to presentation and started Augmentin however continued worsening In ER afebrile.HR: 114, down to 87, R: 20, BP 157/90, 96% on room air WBC: 10.9 CT Hand noted indentation of dorsal aspect of right 2nd Metacarpal head, suggestive of nondisplaced fracture. Probable additional fracture of fright 3rd metacarpal head. Small amount of fluid in right 2nd MCP joint with peripheral enhancement. Dorsal subcut edema of right hand, wrist and forearm Got Tetanus shot in ER Reported his dog is fully vaccinated Was started on IV unasyn Ortho evaluated and performed Incision and Drainage of right hand on 01/09/24 Surgeon noted puncture wound involving bone and joint. Possible early osteomyelitis of 2nd metacarpal head and possible septic arthritis of index finger MCP joint Bone culture growing Pasteurella canis/oralis, Alpha strep not enterococcus Infectious disease evaluated and recommended 6 weeks of IV unasyn Script provided to CM and arrangements made for Home IV antibiotics (IV unasyn 3g q6h x 6 weeks till 02/19/24) Surgeon provided instructions on wound care Patient to follow up with PCP and Surgeon outpatient (3) Hypertension: BP was elevated throughout stay despite optimal pain control Patient was started on amlodipine 2.5mg daily PCP to follow up and monitor (4) Tobacco use: Smokes 1ppd Was counseled regarding smoking cessation Total Time Total Time Spent Total Time Spent (In Minutes): 45 Total Time Includes: Examination of the Patient, Discharge Planning and Medication Reconciliation Discharge Plan Discharge Items Patient Disposition: Home - Self-Care Reason For Visit: DOG BITE CELLULITIS Discharge Diagnosis: Right hand cellulitis from dog bite Hand osteomyelitis Hypertension Activity: As commented below Weightbearing: Right weightbearing Weightbearing Comment: as tolerated Non-emergency contact: Surgeon Call non-emergency contact if: your symptoms worsen, your pain is not controlled, your temperature is above 101, your wound has increased redness and your wound has increased drainage Follow-up/Referrals: Kevin Solorio MD [Surgeon] - 01/18/24 11:30 am Elmer Rodriguez M.D. [Outside Practitioners] - (Date & Time 01/19/2024 2:20 PM Provider Elmer Rodriguez MD Department Family Practice [facility] ) Diet: Heart Healthy Addsara Attending Provider Instructions: Mr Ackerman You came to the hospital for hand infection after dog bite You had incision and drainage. You are being discharged on IV antibiotics (Unasyn) every 6 hours for 6 weeks until 02/19/24 You were also started on low dose amlodipine for hypertension Please use tylenol for mild pain and the oxycodone as needed for moderate to severe pain. Please ensure you follow up with Family Practice as well as the Orthopedic surgeon. Addtl Marketing Executive Provider Instructions: Orthopedic instructions: -Elevate right hand above heart frequently to reduce pain and swelling. -Keep dressings on right hand. Keep it clean and dry. Do not soak or submerge incision. May change dressings as needed. -Ice to right hand as needed for swelling. -May do finger range of motion as tolerated and dressings allow. -Change dressings on an as-needed basis or every 2 days. -Continue IV antibiotics as per infectious disease with your PICC line. -Call [phone] with any increased pain, swelling, fevers, chills, drainage, questions or concerns. -Follow-up as scheduled. If you leave the hospital on January 11 please follow-up on January 14 at 930 at [facility] orthopedics. Pending Studies at Discharge: No Stand-Alone Forms: My [facility] Medications and DC Order Prescriptions: New acetaminophen 325 mg Tablet 650 mg PO Q4H PRN (Reason: mild pain (scale score 1-4)) Qty: 60 0RF amlodipine [Norvasc] 5 mg Tablet 2.5 mg PO QAM 30 Days Qty: 15 0RF oxycodone 5 mg Tablet 5 mg PO Q6H PRN (Reason: Moderate to severe pain) Qty: 30 0RF Continued ibuprofen 800 mg tablet 800 mg PO DIRECTED PRN (Reason: Pain) mupirocin 2 % ointment 1 applic TOPICAL DIRECTED Discontinued tramadol 50 mg tablet 50 mg PO DIRECTED PRN (Reason: Pain) Rx Instructions: given yesterday as 1 day supply amoxicillin-pot clavulanate 875-125 mg tablet 1 tab PO BID Admission Data Admit Date/Time: 01/09/24 12:58 Attending Provider: Cheyenne Feliciano I. Admit Provider: Vik Petersen Primary Care Provider: PCP,NO Other Providers: Vik Petersen; Kevin Solorio; Dayanna Wilhelm; Annamarie Mota; Gricelda Glass; Srikanth Ross; Terri Wick; Effie Rosales; [facility]
--- NOTE | 2024-01-12 17:09 | Infectious Disease Progress Nt ---
Date of Service January 12, 2024 Assessment & Plan (1) Cellulitis of hand, right: (2) Dog bite: Plan This is a 58-year-old male with a past medical history of tobacco use who presented to the ED after adog bite 2 days prior. Dog is his pet dog and is up-to-date with vaccinations. Dog bit him after he accidently hit his sore lef. Dog latched on to his R hand and he was unable to remove him for about 1 minute He denies fever, chills, sweats, nausea, vomiting. He developed R hand and swelling was seen in urgent care. He was started on Augmentin however he continued to have increasing pain, erythema, swelling, so he was presented to the ER for further evaluaion . In the ED afebrile, heart rate 114, RR 20, blood pressure 157/90, O2 sats 96% on room air. Labs: WBC 10.92, BUN 12, creatinine 0.87. CT hand noted indentation of dorsal aspect of the right second metacarpal head, suggestive of nondisplaced fracture. Probable additional fracture of right third metacarpal head. Small amount of fluid in the right second MCP joint with peripheral enhancement. Dorsal subcutaneous edema of right hand, wrist, forearm. Hand x-ray showed dorsal soft tissue swelling with no acute bony abnormality. A tiny radiodense foreign body is seen in the fourth digit. He received tetanus vaccine in ED and was started on Unasyn. He underwent incision and drainage of the right index finger with irrigation of the metacarpophalangeal joint and debridement of the second metacarpal head phalangeal joint and debridement of the second metacarpal head. Per op report there was a solitary puncture on the volar aspect of the metacarpal phalangeal joint without redness fluctuance or drainage. On the dorsal aspect of the hand there were multiple punctures and abrasions over the metacarpal phalangeal joint. Slight fluctuance was noted and with some pressure,purulence was expressed from the larger wound on the more ulnar side of the joint. Upon incision a small amount of purulence was noted from the right index finger wound. There was an obvious puncture of the second metacarpal head, cultures were obtained of the metacarpal phalangeal joint and metacarpal head. Tenosynovium was debrided. bone cultures obtained from the second metacarpal head obtained and growing Pasteurella canis/oralis. ID consulted for dog bite s/p I and D. Patient has less hand pain. Microbiology Blood cultures 01/07 NGTD Wound cultures 01/08 right index finger (OR) NGTD PRELIM Wound cultures 01/08 right second metacarpal head (OR) NGTD PRELIM Wound cultures 01/08 Pasteurella canis/ oralis and Alph strep(BONE) PRELIM Antibiotics: Unasyn 01/07ongoing PATH G . Bone, second metacarpal head, debridement: - Abundant acute inflammation and necrosis with bone fragments compatible with osteomyelitis. B. Soft tissue, right index finger, debridement: - Abundant acute inflammation and necrosis consistent with cellulitis #Right hand dog bite # Right hand cellulitis/ SSTI with likely second metacarpal head osteomyelitis and septic arthritis of the index finger metacarpophalangeal joint - his own dog, fully vaccinated - he is/sp tetanus vaccine inpt -s/p Right index finger incision, drainage and debridement intra op bone cx ( Pasteurella) Discussion: Surgery had c/f bony and possible joint involvement. 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 Surgical bone path + OM OR cx + pasteurella canis/oralis and Alpha strep so far. Recommendations Continue Unasyn 3 g Iv q 6h. Can consider change to continuous dosing at discharge at Unasyn 12 g IV daily continuous for ease of dosing. FU OR cx to finalization to ensure all organisms covered. Anticipate 6 wks IV abx as bone involvement ( 01/09/24- 02/19/24) Weekly Cbc with diff, BMP,LFt on abx Follow up with Ortho as scheduled Set up care with local ID Srikanth Ross MD, MPH Infectious Disease ID [facility], ID [facility] Call [phone] with questions Admission and Anticipated Discharge Date Admission Date: January 09, 2024 Subjective This patient recommendation is based on a telemedicine consult request which was completed asynchronously through chart review and information provided by the primary physician. The patient was not seen or examined today. The evaluation is consultative in nature and all patient care and treatment decisions can either be accepted or rejected by the patient's primary hospital-based treating physician using their own independent medical judgment for their patient. Time Spent Reviewing Chart: 21 - 30 minutes OR path + OM and Culture + for alpha strep. and Pasteurella so far Results & Data Vital Signs (Past 12 Hours) Vital Signs Temp Pulse Pulse Resp BP Pulse Ox O2 Del Method 01/12/24 15:19 36.8 C 81 16 94 Room Air 01/12/24 14:52 92 H 01/12/24 12:21 37.1 C 80 18 149/89 H 95 Room Air 01/12/24 11:05 36.9 C 90 18 132/84 95 Room Air 01/12/24 10:33 79 01/12/24 07:27 36.5 C 70 16 148/86 H 94 Room Air Laboratory Results Short CBC 01/12/24 Range/Units 05:32 WBC 6.70 (4.8-10.8) K/ul Hgb 12.2 L (14.0-18.0) g/dl Hct 36.4 L (42.0-52.0) % Plt Count 238 (130-400) K/uL BMP 01/12/24 05:32 Sodium 139 Potassium 4.0 Chloride 108 H Carbon Dioxide 25 BUN 18 Creatinine 1.03 Glucose 94 Calcium 8.9 Diagnostic Findings Microbiology 01/09/24 13:37 Bone Gram Stain - Final 01/09/24 13:37 Bone Aerobic and Anaerobic Culture - Preliminary Pasteurella canis/oralis Alpha strep. not enterococcus 01/09/24 13:37 Finger,Right Gram Stain - Final 01/09/24 13:37 Finger,Right Aerobic and Anaerobic Culture - Preliminary No growth to date. 01/09/24 13:37 Finger,Right Index Gram Stain - Final 01/09/24 13:37 Finger,Right Index Aerobic and Anaerobic Culture - Preliminary No growth to date. 01/09/24 13:37 Finger,Right Index Gram Stain - Final 01/09/24 13:37 Finger,Right Index Aerobic and Anaerobic Culture - Preliminary No growth to date. 01/08/24 19:30 Blood Aerobic Blood Culture - Preliminary No growth in Aerobic bottle after 48 hours. 01/08/24 19:30 Blood Anaerobic Blood Culture - Preliminary No growth in Anaerobic bottle after 48 hours. Medications Administered Home Medications Medication Instructions Recorded Confirmed Last Taken ibuprofen 800 mg tablet 800 mg PO DIRECTED PRN Pain 01/08/24 01/08/24 Unknown mupirocin 2 % topical ointment 1 applic topical DIRECTED 01/08/24 01/08/24 Unknown acetaminophen 325 mg tablet 650 mg (2 x 325 mg) PO Q4H PRN 01/12/24 Unknown mild pain (scale score 1-4) #60 tabs amlodipine 5 mg tablet (Norvasc) 2.5 mg (1/2 x 5 mg) PO QAM 30 days 01/12/24 Unknown #15 tabs oxycodone 5 mg tablet 5 mg PO Q6H PRN Moderate to severe 01/12/24 Unknown pain #30 tabs Active Medications Generic Name Dose Route Start Last Admin Trade Name Freq PRN Reason Stop Dose Admin Acetaminophen 650 mg 01/08/24 21:26 01/08/24 22:59 Acetaminophen 325 Mg Tab PO 02/07/24 21:25 650 mg Q4H PRN Administration pain/fever Amlodipine Besylate 2.5 mg 01/11/24 15:45 01/12/24 10:11 Amlodipine Besylate 5 Mg Tab PO 02/10/24 15:44 2.5 mg QAM ISMAEL Administration Ampicillin Sodium/Sulbactam Sodium 3,000 mg in 100 mls @ 200 mls/hr 01/08/24 22:00 01/12/24 16:58 Unasyn IV 01/15/24 21:59 Infused Q6H ISMAEL Infusion Melatonin 3 mg 01/11/24 21:49 01/11/24 22:27 Melatonin 3 Mg Tab PO 02/10/24 21:48 3 mg HS PRN Administration Sleep Oxycodone HCl 5 - 10 mg 01/09/24 15:46 01/11/24 20:24 Oxycodone Hcl Ir 5 Mg Tab (Immediate Release) PO 01/23/24 15:45 5 mg Q4H PRN Administration Pain or Pre PT Senna/Docusate Sodium 1 tab 01/11/24 10:15 01/12/24 10:10 Docusate Sodium/Senna 50/8.6mg Tab PO 02/10/24 10:14 1 tab QAM ISMAEL Administration
== END 2024-01-12 18:09 | disposition home or self-care (01) | DRG 982 ==
LOC: ED 14:08 → 2W 14:08 → SUATTDRO 17:54 → 2W 20:55